=== PATIENT | male | born 1960 | race Caucasian/White ===

== ENCOUNTER 2024-06-07 12:10 | Emergency (ER) | payer MEDICARE, MEDICAID, SELFPAY ==
[2024-06-07 12:13] VITALS: BP 131/75; PULSE 79; RESP 18; TEMP 38.5; O2SAT 95
[2024-06-07 12:47] LABS: EDCOVIDSCREEN Negative (Negative); EDINFLUASCREEN Negative (Negative); EDINFLUBSCREEN Negative (Negative)
--- OUTSIDE RECORDS SUMMARY | 2024-06-07 12:57 | XMS_ITS | Encounter Summary ---
Author Organization [facility] Address [address] [place] [address] Phone Care Team Providers Care Chemical Plant Operator Supervisor Name Role Phone Anaya Barker Primary Care Provider Espinoza Noyola MD Unavailable Provider, None Primary Care Provider Unavailabl e Reason for Visit * Reason Comments Medication Refill Encounter Details Date Type Department Care Team (Late st Contact Info) Description 11/25/2020 Refill [facility] - Pulmonology & Sleep Medicine [facility] [address] [place] [address] Espinoza Noyola MD [address] [place] [address] Medication Refill Social History Tobacco Use Types Packs/Day Years Used Date Smoking Tobacco: Every Day Cigarettes 1 47.6 Started: 11/07/1976 Smokeless Tobacco: Never Alcohol Use Standard Drinks/Week Comments Yes 4 (1 standard drink = 0.6 oz pur e alcohol) per week Sexually Active Control Partners Comments Yes Female Sex and Gender Information Value Date Recorded Sex Assigned at Not on file Legal Sex Male 7:49 PM CDT Gender Identity Not on file Sexual Orientation Not on file documented as of this encounter Plan of Treatment Not on file documented as of this encounter Visit Diagnoses Not on filedocumented in this encounter Care Teams Chemical Plant Operator Supervisor Relationship Specialty Start Date End Date Anaya Barker PA [address] [place] [address] PCP - General Adult Medicine 06/24/16 09/26/21 Provider, None [place] PCP - General 09/27/21 Espinoza Noyola MD [address] [place] [address] Consulting Physician Pulmonary Disease 06/24/16 documented as of this encounter
--- OUTSIDE RECORDS SUMMARY | 2024-06-07 12:57 | XMS_ITS | Clinical Summary ---
Author Organization [facility] Address [address] [place] [address]. [place] [address] [place] [address] Care Team Providers Care Quahogger Name Role Phone Unavailable Primary Care Provider Unavailabl e Allergies No known active allergies Medications VENTOLIN HFA 108 (90 Base) MCG/ACT inhaler Inhale 2 puffs into the lungs every 6 (six) hours as needed. 2 Active fluticasone propionate (FLONASE) 50 MCG/ACT nasal spray SHAKE LIQUID AND USE 1 SPRAY IN EACH NOSTRIL TWICE DAILY NEEDED FOR CONGESTION 2 Active DALIRESP 500 MCG Tab Take 500 mcg by mouth daily. 2 Active SPIRIVA HANDIHALER [address] 1 capsule into inhaler and inhale daily. 2 Active Budeson-Glycopyrr ol-Formoterol (BREZTRI AEROSPHERE) 160-9-4.8 MCG/ACT AerosolIndication s:Centrilobular emphysema (CMS/HCC HHS/HCC) Inhale 2 puffs into the lungs 2 (two) times a day. 10.7 g 5 2 Active losartan-hydroCHL OROthiazide (HYZAAR) 50-12.5 MG tabletIndications :Primary hypertension Take 0.5 tablets by mouth daily. 90 tablet 1 2 Active meloxicam (MOBIC) 15 MG tabletIndications :Chronic midline low back pain with left-sided sciatica Take 1 tablet (15 mg total) by mouth daily as needed. 30 tablet 3 2 Active sertraline (ZOLOFT) 50 MG tabletIndications :DUNCAN (generalized anxiety disorder) TAKE 1 TABLET(50 MG) BY MOUTH DAILY 30 tablet 3 Active omeprazole (PRILOSEC) 40 MG capsuleIndication s:Gastroesophagea l reflux disease without esophagitis TAKE 1 CAPSULE(40 MG) BY MOUTH DAILY 90 capsule 1 3 Active Active Problems Problem Noted Date Diagnosed Date Umbilical hernia without obstruction and without gangrene 11/08/2019 Benign essential HTN 03/28/2019 Centrilobular emphysema (CMS/HCC HHS/HCC) 2016 Gastroesophageal reflux disease without esophagi tis 08/13/2016 Tobacco use disorder 08/13/2016 Immunizations Name Administration Dates Next Due Fluzone 6 Months+ Quad (0.5 mL Prefilled Syringe) 02/06/2022 Influenza Adult (Generic) 03/30/2020,11/2018,03/22/2018,2016,03/03/2016,02/12/2015 EDIL ([employer]) COVID-19 AD26 VACCINE 0.5 ML IM SUSP 09/29/2020 Pneumococcal (Pneumovax 23) 10/17/2009 Pneumococcal (Prevnar 13) 03/05/2022 Td, Adsorbed, Preservative F ree, Adult Use, Lf Unspecified 02/12/2015 Social History Tobacco Use Types Packs/Day Years Used Date Smoking Tobacco: Every Day Cigarettes 0.5 45 Smokeless Tobacco: Never Tobacco Cessation:Ready to Q uit: No; Counseling Given: Yes Comments:counseled by Dr Lundberg Alcohol Use Standard Drinks/Week Comments Not Currently 0 (1 standard drink = 0.6 oz pur e alcohol) PHQ-2 Answer Date Recorded PHQ-2 Score - If the patient scores above 3, please move on to questions 3-9 2 03/05/2022 Sex and Gender Information Value Date Recorded Sex Assigned at Not on file Legal Sex Male 8:34 AM CDT Gender Identity Not on file Sexual Orientation Not on file Last Filed Vital Signs Vital Sign Reading Time Taken Comments Blood Pressure 133/81 03/05/2022 10:12 AM CDT Pulse 82 03/05/2022 9:47 AM CDT Temperature 36.9 ??C (98.4 ??F) 03/05/2022 9:47 AM CD T Respiratory Rate 18 03/05/2022 9:47 AM CDT Oxygen Saturation 94% 03/05/2022 9:47 AM CDT Inhaled Oxygen Concentration - - Weight 93.7 kg (206 lb 9.6 oz) 03/05/2022 9:47 A M CDT Height 175.3 cm (5' 9 ) 03/05/2022 9:47 AM CDT Body Mass Index 30.51 03/05/2022 9:47 AM CDT Plan of Treatment Health Maintenance Due Date Last Done Comments Colorectal Cancer Screening Colonoscopy (10 Years) 1959 PHQ-2 (Physician [employer] [place] [place]) 1971 Zoster Vaccines (1 of 2) 2009 DTaP, Tdap and Td Vaccines (1 - Tdap) 02/13/2015 02/12/2015 RSV Immunization or 60+ Years (1 - Risk 60-74 years 1-dose series) 2019 COVID-19 Vaccine (2 - season) 2024 09/29/2020 Pneumococcal Vaccine: 65+ Years (3 of 3 - PPSV23 or PCV20) 02/02/2024 03/05/2022, 10/17/2009 Pneumococcal Vaccine: Pediatrics (0 to 5 Years) and At-Risk Patients (6 to 64 Years) (3 of 3 - PPSV23 or PCV20) 02/02/2024 03/05/2022, 10/17/2009 Influenza Adult (#1) 2024 02/06/2022, 03/30/2020, 02/14/2019, Additional history exists PHQ-2 (Physician [employer] [place] [place]) 05/11/2024 Hepatitis C Completed 02/06/2022 Meningococcal B Vaccine Aged Out No l onger eligible based on patient's age to complete this topic Meningococcal Vaccine Aged Out No marly teresita eligible based on patient's age to complete this topic RSV Immunizations Under 20 Months Aged Out No longer eligible based on patient's age to complete this topic Procedures Procedure Name Priority Date/Time Associated Diagnosis Comments HEPATITIS C ANTIBODY Routine 02/06/2022 9:54 AM CDT Annual physical exam Encounter for medical examination to establish care General medical exam Encounter for hepatitis C screening test for low risk patient from Last 3 Months or Most Recently Relevant to Health Maintenance Results * HEPATITIS C ANTIBODY (02/06/2022 9:54 AM CDT) HEPATITIS C AB NON-REACTI VE NON-REACT AUDRA 02/06/2022 6:30 PM CDT [facility] Comment: ANTIBODIES TO HCV NOT DETECTED. DOES NOT EXCLUDE THE POSSIBILITY OF EXPOSURE TO HCV. 02/06/2022 9:54 AM CDT Sarah Lundberg MD LABORATORY Final Result [facility] [address] [place] [address], [id number] from Last 3 Months or Most Recently Relevant to Health Maintenance Insurance [employer]
--- OUTSIDE RECORDS SUMMARY | 2024-06-07 12:57 | XMS_ITS | Encounter Summary ---
Author Organization [facility] Address [address] [place] [address] Phone Care Team Providers Care Solid Die Cutter Name Role Phone Espinoza Noyola MD Unavailable Provider, None Primary Care Provider Unavailabl e Reason for Visit * Reason Onset Date Comments Patient Outreach 04/02/2022 LM on Encounter Details Date Type Department Care Team (Late st Contact Info) Description 04/02/2022 Patient Outreach [facility] - Pulmonology & Sleep Medicine [facility] [address] [place] [address] Espinoza Noyola MD [address] [place] [address] Patient Outreach (LM on ) Social History Tobacco Use Types Packs/Day Years [...] on filedocumented in this encounter Care Teams Solid Die Cutter Relationship Specialty Start Date End Date Provider, None [place] PCP - General 09/27/21 Espinoza Noyola MD Consulting Physician Pulmonary Disease 06/24/16 documented as of this encounter
--- OUTSIDE RECORDS SUMMARY | 2024-06-07 12:57 | XMS_ITS | Encounter Summary ---
Author Organization [facility] Address [address] [place] [address] Phone Care Team Providers Care Epic Director Name Role Phone Anaya Barker Primary Care Provider [phone] Espinoza Noyola MD Unavailable Provider, None Primary Care Provider Unavailabl e Reason for Visit * Reason Comments Medication Refill Encounter Details Date Type Department Care Team (Late st Contact Info) Description 05/27/2020 Refill [facility] [address] [place] [address] Espinoza Noyola MD [address] [place] [address] Medication Refill Social History Tobacco [...] on filedocumented in this encounter Care Teams Epic Director Relationship Specialty Start Date End Date Anaya Barker PA [address] [place] [address] PCP - General Adult Medicine 06/24/16 09/26/21 Provider, None [place] PCP - General 09/27/21 Espinoza Noyola MD [address] [place] [address] Consulting Physician Pulmonary Disease 06/24/16 documented as of this encounter
--- OUTSIDE RECORDS SUMMARY | 2024-06-07 12:57 | XMS_ITS | Encounter Summary ---
Author Organization [facility] Address [address] [place] [address] Phone Care Team Providers Care Atm Manager Name Role Phone Espinoza Noyola MD Unavailable Provider, None Primary Care Provider Unavailabl e Reason for Visit * Reason Comments Medication Refill Encounter Details Date Type Department Care Team (Late st Contact Info) Description 12/01/2021 Refill [facility] - Pulmonology & [facility] Medicine [facility] [address] [place] [address] Espinoza Noyola MD [address] [place] [address] Medication Refill Social History Tobacco [...] on file documented as of this encounter Miscellaneous Notes * Telephone Encounter - Mitzi Stout RN - 12/02/2021 8:02 AM CDT Patient needs an appointment documented in this encounter Plan of Treatment Not on file documented as of this encounter Visit Diagnoses Not on filedocumented in this encounter Care Teams Atm Manager Relationship Specialty Start Date End Date Provider, None [place] PCP - General 09/27/21 Espinoza Noyola MD Consulting Physician Pulmonary Disease 06/24/16 documented as of this encounter
--- OUTSIDE RECORDS SUMMARY | 2024-06-07 12:57 | XMS_ITS | Encounter Summary ---
Author Organization [facility] Address [address] [place] [address] Phone Care Team Providers Care Dance Master Name Role Phone Anaya Barker Primary Care Provider [phone] Espinoza Noyola MD Unavailable Provider, None Primary Care Provider Unavailabl e Reason for Visit * Reason Comments Medication Refill Encounter Details Date Type Department Care Team (Late st Contact Info) Description 02/05/2020 Refill [facility] [address] [facility] [place] [address] Espinoza Noyola MD [address] [place] [address] Medication Refill Social History Tobacco [...] on filedocumented in this encounter Care Teams Dance Master Relationship Specialty Start Date End Date Anaya Barker PA [address] [place] [address] PCP - General Adult Medicine 06/24/16 09/26/21 Provider, [facility] PCP - General 09/27/21 Espinoza Noyola MD [address] [place] [address] Consulting Physician Pulmonary Disease 06/24/16 documented as of this encounter
--- OUTSIDE RECORDS SUMMARY | 2024-06-07 12:57 | XMS_ITS | Clinical Summary ---
Author Organization [facility] Address [address] [facility] [place] [address] Phone Care Team Providers Care Street Worker Name Role Phone Provider, None Primary Care Provider Unavailabl e Allergies Active Allergy Reactions Criticality Noted Date Comments Gabapentin Rash,Other (see Comments) 06/28/2019 Dizziness Medications VENTOLIN HFA 108 (90 Base) MCG/ACT Aerosol Solution 5 7 Active albuterol (PROVENTIL, VENTOLIN) (2.5 MG/3ML) 0.083% Nebulizer Soln Reported on 08/13/2016 3 6 Active NICOTROL NS 10 MG/ML Solution Reported on 08/13/2016 0 7 Active omeprazole (PRILOSEC) 20 MG CAPSULE DELAYED RELEASE 3 7 Active EQL SALINE NASAL SPRAY 0.65 % Solution Reported on 08/13/2016 0 7 Active fluticasone (FLONASE) 50 MCG/ACT Suspension Reported on 08/13/2016 1 7 Active budesonide-form oterol fumarate (SYMBICORT) 160-4.5 MCG/ACT Aerosol take 2 Puffs by inhalation 2 times daily. Active hydrOXYzine (ATARAX) 10 MG Tablet hydroxyzine HCl 10 mg tablet take 1 tab PO TID PRN Active losartan (COZAAR) 25 MG Tablet losartan 25 mg tablet Take 1 tablet every day by oral route. Active baclofen (LIORESAL) 10 MG Tablet 0 Active diclofenac (VOLTAREN) 50 MG Tablet Delayed Response 0 Active tamsulosin (FLOMAX) 0.4 MG Capsule TK 1 C PO QD 0 Active Spiriva HandiHaler 18 MCG Capsule INHALE THE CONTENTS OF 1 CAPSULE VIA INHALATION DEVICE EVERY DAY 30 Cap 5 1 Active Daliresp 500 MCG Tablet TAKE 1 TABLET BY MOUTH DAILY 90 Tablet 3 1 Active HYDROcodone-kinsey taminophen (NORCO) 5-325 MG TabletIndicatio ns:Low back pain with left-sided sciatica Take 1 Tablet by mouth every 8 hours as needed for Moderate or more severe pain. 12 Tablet 2 Active Active Problems Problem Noted Date Diagnosed Date Umbilical hernia without obstruction and without gangrene 11/08/2019 Benign essential HTN 03/28/2019 Centrilobular emphysema 08/13/2016 SOB (shortness of breath) 08/13/2016 Cough 08/13/2016 Gastroesophageal reflux disease without esophagi tis 08/13/2016 Tobacco use disorder 08/13/2016 Non morbid obesity due to excess calories 2016 Family History Medical History Relation Name Comments Diabetes Father Diabetes Maternal Grandmother Cancer Mother Dementia Mother Diabetes Mother Hypertension Mother Stroke Mother No Known Problems Sister 1 No Known Problems Sister 2 No Known Problems Son 1 No Known Problems Son 2 No Known Problems Son 3 No Known Problems Son 4 Relation Name Status Comments Father Alive Maternal Grandfather Maternal Grandmother Mother Paternal Grandfather Paternal Grandmother Sister 1 Alive Sister 2 Alive Son 1 Alive Son 2 Alive Son 3 Alive Son 4 Alive Social History Tobacco Use Types Packs/Day Years Used Date Smoking Tobacco: Every Day Cigarettes 1 47.6 Started: 11/07/1976 Smokeless Tobacco: Never Tobacco Cessation:Ready to Q uit: Yes; Counseling Given: No Alcohol Use Standard Drinks/Week Comments Yes 4 [...] Sign Reading Time Taken Comments Blood Pressure 153/103 09/27/2021 7:11 PM CDT Pulse 93 09/27/2021 7:08 PM CDT Temperature 36.8 ??C (98.2 ??F) 09/27/2021 7:08 PM CD T Respiratory Rate 20 09/27/2021 7:08 PM CDT Oxygen Saturation 97% 09/27/2021 7:08 PM CDT Inhaled Oxygen Concentration - - Weight 94.3 kg (208 lb) 09/27/2021 7:08 PM CDT Height 175.3 cm (5' 9 ) 09/27/2021 7:08 PM CDT Body Mass Index 30.72 09/27/2021 7:08 PM CDT Plan of Treatment Health Maintenance Due Date Last Done Comments Hepatitis C Virus (HCV) Screening 1960 TdaP Immunization 1960 Colonoscopy 02/02/2004 Colorectal Cancer Screening 02/02/2004 Cologuard 2009 Immunochemical Fecal Occult Blood 2009 Zoster Immunization (1 of 2) 2009 Pneumococcal Immunization (50+ years) (2 of 2 - PCV) 10/17/2010 10/17/2009 PSA Discussion 2014 Respiratory Syncytial Virus (RSV) Immunization (Adult) (1 - Risk 60-74 years 1-dose series) 2019 Influenza Immunization (#1) 01/10/202403/12, 02/14/2019, 03/22/2018, Additional history exists SARS-COV-2 Immunization (2 - season) 2024 09/29/2020 Pneumococcal Immunization Combined Discontinued 10/17/2009 DTaP/Tdap/Td Immunization Discontinued 02/12/2015 Lung Cancer Screening Discontinued 09/17/2016 Hepatitis B Immunization Aged Out No longer eligible based on patient's age to complete this topic Meningococcal Immunization (ACWY) Aged Out No longer eligible based on patient's age to complete this topic Rotavirus Immunization Aged Out No lo nger eligible based on patient's age to complete this topic Procedures Procedure Name Priority Date/Time Associated Diagnosis Comments CT CHEST W CONTRAST Routine 09/17/2016 1:13 PM CDT Hyperinflation of lungs from Last 3 Months or Most Recently Relevant to Health Maintenance Results * CT CHEST W CONTRAST (09/17/2016 1:13 PM CDT) Anatomical Region Laterality Modality Chest N/A Computed Tomogra phy 09/19/2016 4:42 PM CDT Impressions 09/19/2016 4:45 PM CDT IMPRESSION: ?? 1. ??Right third rib irregularity shows no change since 2008. ??No concerning osseous abnormality is seen. 2. ??Small hiatal hernia and other chronic finding so as above. Automated exposure control was used as a dose optimization technique for this examination. Narrative 09/19/2016 4:45 PM CDT EXAMINATION: ??CT chest with contrast HISTORY: ??Follow-up resection of right third rib lesion 10/07/2008. COMPARISON: ??10/11/2008 TECHNIQUE: ??100 mL of Isovue 370 were administered via the right antecubital IV and CT sections were obtained through the thorax. FINDINGS: ??Irregularity at the lateral right 3rd rib shows no change since 2008. ??No new lesion is seen. ??Other osseous structures are unremarkable. Heart size is normal. ??No enlarged lymph node. ??Thoracic inlet and thyroid gland appear normal. ??Small hiatal hernia and mild thickening of the distal esophagus. ??Mild to moderate emphysema. ?? Mild right base atelectasis. ??Trachea and major airways are patent. Review of the upper abdomen reveals no concerning abnormality. THIS IS AN ELECTRONICALLY VERIFIED REPORT 09/19/2016 4:42 PM: ?? Jose Juan Shaw M.D. ? Jose Juan Shaw M.D. Radiologist AR:ashley RYN Procedure Note Jose Juan Shaw MD - 09/19/2016 EXAMINATION: CT chest with contrast HISTORY: Follow-up resection of right third rib lesion 10/07/2008. COMPARISON: 10/11/2008 TECHNIQUE: 100 mL of Isovue 370 were administered via the right antecubital IV and CT sections were obtained through the thorax. FINDINGS: Irregularity at the lateral right 3rd rib shows no change since 2008. No new lesion is seen. Other osseous structures are unremarkable. Heart size is normal. No enlarged lymph node. Thoracic inlet and thyroid gland appear normal. Small hiatal hernia and mild thickening of the distal esophagus. Mild to moderate emphysema. Mild right base atelectasis. Trachea and major airways are patent. Review of the upper abdomen reveals no concerning abnormality. THIS IS AN ELECTRONICALLY VERIFIED REPORT 09/19/2016 4:42 PM: Jose Juan Shaw M.D. Jose Juan Shaw M.D. Radiologist AR:ashley RYN IMPRESSION: 1. Right third rib irregularity shows no change since 2008. No concerning osseous abnormality is seen. 2. Small hiatal hernia and other chronic finding so as above. Automated exposure control was used as a dose optimization technique for this examination. Espinoza Noyola MD IMG CT ORDERABLES Final Result from Last 3 Months or Most Recently Relevant to Health Maintenance [place] [address] MEDICAID [place] MEDICARE C [employer] Care Teams Street Worker Relationship Specialty Start Date End Date Provider, None [place] PCP - General 09/27/21
--- NOTE | 2024-06-07 13:14 | ED.GENADULT ---
HPI - General Adult General Chief complaint: Allergic Reaction Stated complaint: Allergic Reaction /Swelling Face and Head Source: patient and family Mode of arrival: ambulatory Limitations: no limitations History of Present Illness HPI narrative: Pt presents for evaluation of pain, redness and swelling to his scalp, forehead, right side of the face and right external ear. Symptom onset 2 days ago. He denies any fever, chills, nausea, vomiting. No new lotions, soaps, detergents, topical products. He was experiencing muscle spasms in his neck so repeatedly was slapping the posterior aspect of his neck to see if that would help alleviate his symptoms. He has not had similar symptoms in the past. He has a chronic cough and LARSEN which are not worse at the present time when compared to his baseline. He smokes 1-2 ppd. His son states he has been more lethargic, laying around during the day. Of note, he has been off his prescription medications for several years. He is not able to tell me what medications he was prescribed but mentioned that he was on at least a medication for his blood pressure and another for his cholesterol. He states several years ago he had a DVT but was only on a blood thinner for about 1 week. Related Data Home Medications ?Medication ?Instructions ?Recorded ?Confirmed ?Last Taken ?Type inhaler 06/07/24 Unknown History Allergies Allergy/AdvReac Type Severity Reaction Status Date / Time No Known Allergies Allergy Verified 06/07/24 13:04 Review of Systems Review of Systems: CONSTITUTIONAL: Denies fever, chills, or sweats. EYES: Denies visual changes, redness, or discharge. ENT: Denies rhinorrhea, congestion, sore throat, or otalgia. CARDIOVASCULAR: Denies chest pain, palpitations, or edema. RESPIRATORY: Reports chronic cough and shortness of breath. GASTROINTESTINAL: Denies abdominal pain, nausea, vomiting, or diarrhea. GENITOURINARY: Denies dysuria or hematuria. SKIN: Reports redness and itching to the scalp forehead, right side of his face and right ear. MUSCULOSKELETAL: Reports muscle spasms in the neck and chest. NEUROLOGIC: Denies headache, numbness, dizziness, or weakness. PSYCHIATRIC: Denies anxiety or depression. [facility] Past Medical History Medical History DVT (deep venous thrombosis) Hyperlipidemia Hypertension Surgical History Surgical History (Reviewed 06/07/24 @ 13:20 by Lawrence Ge, [facility] [place]) No pertinent past surgical history Family History Family History (Reviewed 06/07/24 @ 13:20 by Lawrence Ge, [facility] [place]) Mother Family history non-contributory Social History Social History Smoking packs per day: 2 Smoking cigarettes per day: 40.0 Smoking status: Current every day smoker Tobacco type: cigarettes Alcohol intake: former Living arrangements: alone Sexual Orientation (if Verbalized by the Patient): Straight or Heterosexual Spiritual care concerns: No Exam Narrative: GENERAL: Well-appearing, well-nourished, and in no acute distress. HEAD: Normocephalic, atraumatic. EYES: PERRLA and EOMI. ENT: Nares clear, no rhinorrhea or epistaxis. Mucous membranes moist. Oropharynx without tonsillar hypertrophy exudate or other lesions. Bilateral TMs pearly jarrett nonbulging NECK: Supple. No adenopathy or masses. No carotid bruits or JVD CHEST: Cough present on exam. Clear to auscultation. No respiratory distress. No wheezes rales or rhonchi HEART: Regular rate and rhythm. No murmur heard. Normal peripheral pulses. ABDOMEN: Soft, nontender, nondistended, normal active bowel sounds. EXTREMITIES: Normal range of motion. No edema. SKIN: There is erythema to the scalp globally, the forehead, right side of the face, and right external ear. NEURO: No focal deficits. Alert and oriented x3. PSYCH: Normal mood and affect. Course Course Emergency Course: This is a 64-year-old male who presented for evaluation of redness to the face and scalp. Etiology unclear. This could be a cellulitis verses allergic reaction versus symptom of vascular abnormality. I am concerned that he was previously on a blood thinner for only a week with a DVT. He has also discontinued all of his medications. I think he will have poor follow-up. I recommended he go to the hospital for further evaluation. He is agreeable. [facility] is his facility of choice. I contacted [facility] Emergency Department and spoke with MARITZA Harris, who indicates that Dr. Sanders will accept pt for tx there. Pt transferred via private vehicle. Level of Care: Express Care Visit Vital Signs Vital signs: Vital Signs Temperature 38.5 C H 06/07/24 12:13 Pulse Rate 79 06/07/24 12:13 Respiratory Rate 18 06/07/24 12:13 Blood Pressure 131/75 06/07/24 12:13 Pulse Oximetry 95 06/07/24 12:13 Oxygen Delivery Room Air 06/07/24 12:13 Temperature 38.5 C H 06/07/24 12:13 Pulse Rate 79 06/07/24 12:13 Respiratory Rate 18 06/07/24 12:13 Blood Pressure 131/75 06/07/24 12:13 Pulse Oximetry 95 06/07/24 12:13 Oxygen Delivery Room Air 06/07/24 12:13 Medical Decision Making Vital Signs Vital Signs: Vital Signs Temperature 38.5 C H 06/07/24 12:13 Pulse Rate 79 06/07/24 12:13 Respiratory Rate 18 06/07/24 12:13 Blood Pressure 131/75 06/07/24 12:13 Pulse Oximetry 95 06/07/24 12:13 Oxygen Delivery Room Air 06/07/24 12:13 Temperature 38.5 C H 06/07/24 12:13 Pulse Rate 79 06/07/24 12:13 Respiratory Rate 18 06/07/24 12:13 Blood Pressure 131/75 06/07/24 12:13 Pulse Oximetry 95 06/07/24 12:13 Oxygen Delivery Room Air 06/07/24 12:13 Lab Data Labs: Lab Results 06/07/24 Range/Units 12:45 POC Influenza A Ag Negative (Negative) POC Influenza B Ag Negative (Negative) POC SARS CoV-2 Ag Negative (Negative) Discharge Plan Discharge Clinical Impression: Allergic reaction Patient Disposition: Acute Care Hospital Condition: Stable Patient Language: Turkish Prescriptions: No Action inhaler Follow-up/Referrals: UNKNOWN,DOCTOR [Primary Care Provider] - Time of Disposition: 13:10
== END 2024-06-07 13:17 | disposition short-term general hospital (02) ==
PROVIDERS: Emergency Provider Nurse Practitioner
DX: T78.40XA Allergy, unspecified, initial encounter (principal); Z20.822 Contact with and (suspected) exposure to COVID-19; F17.210 Nicotine dependence, cigarettes, uncomplicated; E78.5 Hyperlipidemia, unspecified; I10 Essential (primary) hypertension; Z91.148 Patient's other noncompliance with medication regimen for other reason; Z86.718 Personal history of other venous thrombosis and embolism
CPT/HCPCS: 87426; 87804; 99202; G0463

== ENCOUNTER 2024-07-06 11:14 | Outpatient (CLI) | payer MEDICARE, MEDICAID, SELFPAY ==
--- NOTE | ~2024-07-06 | XR_ITS ---
CHEST RADIOGRAPH, PA AND LATERAL CLINICAL HISTORY: R05.9 - Cough, unspecified . COMPARISON: None TECHNIQUE: PA and lateral views of the chest. FINDINGS The cardiomediastinal silhouette is unremarkable. Blunting of the right costophrenic sulcus suggesting a small right-sided pleural effusion. The remainder of the lungs are clear IMPRESSION: Small right-sided pleural effusion without focal infiltration. Reviewed, dictated and finalized at location A. [facility] CLERK
--- OUTSIDE RECORDS SUMMARY | 2024-07-06 13:09 | XMS_ITS | Encounter Summary ---
Author Organization [facility] Address [address] [place] [address] Phone Care Team Providers Care Barrel Tester And Drainer Name Role Phone Anaya Barker Primary Care Provider [phone] Espinoza Noyola MD Unavailable Provider, None Primary Care Provider Unavailabl e Reason for Visit * Reason Comments Medication Refill Encounter Details Date Type Department Care Team (Late st Contact Info) Description 05/27/2020 Refill [facility] #[address] [place] [address] Espinoza Noyola MD [address] [place] [address] Medication Refill Social History Tobacco Use Types Packs/Day Years Used Date Smoking Tobacco: Every Day Cigarettes 1 47.7 Started: 11/07/1976 Smokeless Tobacco: Never Alcohol Use [...] on filedocumented in this encounter Care Teams Barrel Tester And Drainer Relationship Specialty Start Date End Date Anaya Barker PA [address] [place] [address] PCP - General Adult Medicine 06/24/16 09/26/21 Provider, None [place] PCP - General 09/27/21 Espinoza Noyola MD [address] [place] [address] Consulting Physician Pulmonary Disease 06/24/16 documented as of this encounter
--- OUTSIDE RECORDS SUMMARY | 2024-07-06 13:09 | XMS_ITS | Clinical Summary ---
Author Organization [facility] Address [facility] [place] [address] Care Team Providers Care Video Editor Name Role Phone Unavailable Primary Care Provider [...] Prefilled Syringe) 02/06/2022 Influenza Adult (Generic) 03/30/2020,11/2018,03/22/2018,2016,03/03/2016,02/12/2015 [employer] ([employer]) COVID-19 AD26 VACCINE 0.5 ML IM SUSP [...] 82 03/05/2022 9:47 AM CDT Temperature 36.9 C (98.4 F) 03/05/2022 9:47 AM CDT Respiratory Rate 18 03/05/2022 9:47 AM CDT [...] Colorectal Cancer Screening Colonoscopy (10 Years) 1960 Zoster Vaccines (1 of 2) 2009 DTaP, Tdap and Td Vaccines (1 - Tdap) 02/13/2015 02/12/2015 RSV Immunization or 60+ Years (1 - Risk 60-74 years 1-dose series) 2019 COVID-19 Vaccine (2 - 2023- season) 2024 09/29/2020 Pneumococcal Vaccine: 65+ Years (3 of 3 - PPSV23 or PCV20) 02/02/2024 03/05/2022, 10/17/2009 Pneumococcal Vaccine: Pediatrics (0 to 5 Years) and At-Risk Patients (6 to 64 Years) (3 of 3 - PPSV23 or PCV20) 02/02/2024 03/05/2022, 10/17/2009 Influenza Adult (#1) 2024 02/06/2022, 03/30/2020, 02/14/2019, Additional history exists PHQ-2 ([facility]) 05/11/2024 Hepatitis C Completed 02/06/2022 Meningococcal B [...] VE NON-REACT AUDRA 02/06/2022 6:30 PM CDT [facility] Comment: ANTIBODIES TO HCV NOT DETECTED. DOES NOT EXCLUDE THE POSSIBILITY OF EXPOSURE TO HCV. 02/06/2022 9:54 AM CDT Sarah Lundberg MD LABORATORY Final Result [facility] [address] [place] [address], [id number] from Last 3 Months or Most Recently Relevant to Health Maintenance Insurance [employer]
--- OUTSIDE RECORDS SUMMARY | 2024-07-06 13:09 | XMS_ITS | Encounter Summary ---
Author Organization [facility] Address [address] [place] [address] Phone Care Team Providers Care Framing Consultant Name Role Phone Espinoza Noyola MD Unavailable Provider, None Primary Care Provider Unavailabl e Reason for Visit * Reason Onset Date Comments Patient Outreach 04/02/2022 LM on Encounter Details Date Type Department Care Team (Late st Contact Info) Description 04/02/2022 Patient Outreach [facility] - Pulmonology & Sleep Medicine [facility] [address] [place] [address] Espinoza Noyola MD [address] [place] [address] Patient Outreach (LM on ) [...] on filedocumented in this encounter Care Teams Framing Consultant Relationship Specialty Start Date End Date Provider, None [place] PCP - General 09/27/21 Espinoza Noyola MD Consulting Physician Pulmonary Disease 06/24/16 documented as of this encounter
--- OUTSIDE RECORDS SUMMARY | 2024-07-06 13:09 | XMS_ITS | Encounter Summary ---
Author Organization [facility] Address [address] [place] [address] Phone Care Team Providers Care Commercial Green Building Architect Name Role Phone Anaya Barker Primary Care Provider [phone] Espinoza Noyola MD Unavailable Provider, None Primary Care Provider Unavailabl e Reason for Visit * Reason Comments Medication Refill Encounter Details Date Type Department Care Team (Late st Contact Info) Description 02/05/2020 Refill [facility] [address] [facility] [place] [address] Espinoza Noyola MD [address] [place] [address] Medication Refill Social History Tobacco [...] on filedocumented in this encounter Care Teams Commercial Green Building Architect Relationship Specialty Start Date End Date Anaya Barker PA [address] [place] [address] PCP - General Adult Medicine 06/24/16 09/26/21 Provider, [facility] PCP - General 09/27/21 Espinoza Noyola MD [address] [place] [address] Consulting Physician Pulmonary Disease 06/24/16 documented as of this encounter
--- OUTSIDE RECORDS SUMMARY | 2024-07-06 13:09 | XMS_ITS | Encounter Summary ---
Author Organization [facility] Address [address] [place] [address] Phone Care Team Providers Care Electron Tube Assembler Name Role Phone Espinoza Noyola MD Unavailable Provider, None Primary Care Provider Unavailabl e Reason for Visit * Reason Comments Medication Refill Encounter Details Date Type Department Care Team (Late st Contact Info) Description 12/01/2021 Refill [facility] - Pul[facility] & [facility] Medicine [facility] [address] [place] [address] Espinoza Noyola MD [address] [place] [address] Medication Refill Social History Tobacco [...] on filedocumented in this encounter Care Teams Electron Tube Assembler Relationship Specialty Start Date End Date Provider, None [place] PCP - General 09/27/21 Espinoza Noyola MD Consulting Physician Pulmonary Disease 06/24/16 documented as of this encounter
--- OUTSIDE RECORDS SUMMARY | 2024-07-06 13:09 | XMS_ITS | Clinical Summary ---
Author Organization [facility] Address [address] [facility] [place] [address] Phone Care Team Providers Care Corrugator Machine Operator Name Role Phone Provider, None Primary Care [...] more severe pain. 12 Tablet 2 Active cephALEXin (Keflex) 500 MG Capsule Take 1 Capsule by mouth 4 times daily for 10 days. 40 Capsule 5 06/18/19 25 sulfamethoxazol e-trimethoprim DS (Bactrim DS) 800-160 MG TabletIndicatio ns:Skin and Soft Tissue Infection Take 1 Tablet by mouth 2 times daily for 10 days. Indications: Infection of the Skin and/or Soft Tissue 20 Tablet 5 06/18/19 25 Active Problems Problem Noted Date Diagnosed Date Umbilical hernia without obstruction and without gangrene 11/08/2019 Benign essential HTN 03/28/2019 Centrilobular emphysema 08/13/2016 SOB (shortness of breath) 08/13/2016 Cough 08/13/2016 Gastroesophageal reflux disease without esophagi tis 08/13/2016 Tobacco use disorder 08/13/2016 Non morbid obesity due to excess calories 2016 Encounters Date Type Department Care Team Description 06/08/2024 11:37 AM SITE SUPERVISING TECHNICAL OPERATOR - 06/08/2024 1:53 PM SITE SUPERVISING TECHNICAL OPERATOR Emergency [facility] Emergency [address] [place] [address] Lawrence Kelley, PAC Facial cellulitis Discharge Disposition: Discharged to home or Selfcare 06/08/2024 Travel from Last 3 Months Family History Medical History Relation Name Comments [...] 1 47.7 Started: 11/07/1976 Smokeless Tobacco: Never Tobacco Cessation:Ready [...] Sign Reading Time Taken Comments Blood Pressure 142/81 06/08/2024 11:41 AM SITE SUPERVISING TECHNICAL OPERATOR Pulse 94 06/08/2024 11:41 AM SITE SUPERVISING TECHNICAL OPERATOR Temperature 38 C (100.4 F) 06/08/2024 11:41 AM SITE SUPERVISING TECHNICAL OPERATOR Respiratory Rate 16 06/08/2024 11:41 AM SITE SUPERVISING TECHNICAL OPERATOR Oxygen Saturation 93% 06/08/2024 11:41 AM SITE SUPERVISING TECHNICAL OPERATOR Inhaled Oxygen Concentration - - Weight 94.3 kg (208 lb) 06/08/2024 11:41 AM SITE SUPERVISING TECHNICAL OPERATOR Height 175.3 cm (5' 9 ) 06/08/2024 11:41 AM SITE SUPERVISING TECHNICAL OPERATOR Body Mass Index 30.72 06/08/2024 11:41 AM SITE SUPERVISING TECHNICAL OPERATOR Plan of Treatment Health Maintenance Due Date Last Done Comments TdaP Immunization 1960 Colonoscopy 02/02/2004 Colorectal Cancer Screening 02/02/2004 Cologuard 2009 Immunochemical Fecal Occult Blood 2009 Zoster Immunization (1 of 2) 2009 PSA Discussion 2014 Respiratory Syncytial Virus (RSV) Immunization (Adult) (1 - Risk 60-74 years 1-dose series) 2019 Influenza Immunization (#1) 2024 09/2 01/2022, 03/30/2020, 02/14/2019, Additional history exists SARS-COV-2 Immunization (2 - season) 2024 09/29/2020 Pneumococcal Immunization (50+ years) (3 of 3 - PCV20 or PCV21) 03/05/2027 03/05/2022, 10/17/2009 DTaP/Tdap/Td Immunization Discontinued 02/12/2015 Lung Cancer Screening Discontinued 09/17/2016 Hepatitis C Virus (HCV) Screening Completed 02/06/2022 Pneumococcal Immunization Combined Discontinued 03/05/2022, 10/17/2009 Hepatitis B Immunization Aged Out No longer eligible based on patient's age to complete this topic Meningococcal Immunization (ACWY) Aged Out No longer eligible based on patient's age to complete this topic Rotavirus Immunization Aged Out No lo nger eligible based on patient's age to complete this topic Procedures Procedure Name Priority Date/Time Associated Diagnosis Comments CBC WITH AUTO DIFFERENTIAL STAT 06/08/2024 12:54 PM SITE SUPERVISING TECHNICAL OPERATOR CMP (COMPREHENSIVE METABOLIC PANEL) STAT 06/08/2024 12:54 PM SITE SUPERVISING TECHNICAL OPERATOR COMPLETE BLOOD COUNT (CBC) WITH DIFF STAT 06/08/2024 12:54 PM SITE SUPERVISING TECHNICAL OPERATOR CT CHEST W CONTRAST Routine 09/17/2016 1 :13 PM CDT Hyperinflation of lungs from Last 3 Months or Most Recently Relevant to Health Maintenance Results * (ABNORMAL) CBC with Auto Differential (06/08/2024 12:54 PM SITE SUPERVISING TECHNICAL OPERATOR) WBC 10.88 4.00 - 12.00 10(3)/mcL 06/08/2024 1:16 PM SITE SUPERVISING TECHNICAL OPERATOR [facility] RBC 5.32 4.40 - 5.80 10(6)/mcL 06/08/2024 1:16 PM SITE SUPERVISING TECHNICAL OPERATOR [facility] HEMOGLOBIN (HGB) 15.1 13.0 - 16.5 g/dL 06/08/2024 1:16 PM SITE SUPERVISING TECHNICAL OPERATOR [facility] HEMATOCRIT (HCT) 44.1 38.0 - 50.0 % 06/08/2024 1:16 PM SITE SUPERVISING TECHNICAL OPERATOR [facility] MCV 82.9 82.0 - 96.0 fL 06/08/2024 1:16 PM [facility] MCH 28.4 26.0 - 32.0 pg 06/08/2024 1:16 PM [facility] MCHC 34.2 31.0 - 36.0 g/dL 06/08/2024 1:16 PM [facility] PLATELET COUNT 193 140 - 440 10(3)/[facility] 06/08/2024 1:16 PM [facility] RDW 12.6 11.8 - 15.5 % 06/08/2024 1:16 PM [facility] MPV 10.8 8.0 - 12.6 fL 06/08/2024 1:16 PM [facility] NEUTROPHILS 80.9(H) 40.0 - 68.0 % 06/08/2024 1:16 PM [facility] LYMPHOCYTES 6.7(L) 19.0 - 49.0 % 06/08/2024 1:16 PM [facility] MONOCYTES 11.8 3.0 - 13.0 % 06/08/2024 1:16 PM [facility] EOSINOPHILS 0.4 0.0 - 8.0 % 06/08/2024 1:16 PM [facility] BASOPHILS 0.2 0.0 - 1.0 % 06/08/2024 1:16 PM [facility] ABSOLUTE NEUTROPHILS 8.81(H) 1.40 - 5.30 10(3)/[facility] 06/08/2024 1:16 PM [facility] ABSOLUTE LYMPHOCYTES 0.73(L) 0.90 - 3.30 10(3)/[facility] 06/08/2024 1:16 PM [facility] ABSOLUTE MONOCYTES 1.28(H) 0.10 - 0.90 10(3)/[facility] 06/08/2024 1:16 PM [facility] ABSOLUTE EOSINOPHIL 0.04 0.00 - 0.50 10(3)/[facility] 06/08/2024 1:16 PM [facility] ABSOLUTE BASOPHILS 0.02 0.00 - 0.10 10(3)/mcL 06/08/2024 1:16 PM [facility] NRBC PER 100 WBC 0 06/08/19 1:16 PM [facility] Blood Venipuncture / Unknown 06/08/2024 12:54 PM SITE SUPERVISING TECHNICAL OPERATOR 06/08/2024 1:12 PM SITE SUPERVISING TECHNICAL OPERATOR us Lawrence Kelley PAC HEMATOLOGY ORDERABLE S Final Result [facility] #[address] [place] [address] * (ABNORMAL) CMP (06/08/2024 12:54 PM SITE SUPERVISING TECHNICAL OPERATOR) SODIUM 136 136 - 145 mmol/L 06/08/2024 1:31 PM [facility] POTASSIUM 3.8 3.5 - 5.1 mmol/L 06/08/2024 1:31 PM [facility] CHLORIDE 103 98 - 107 mmol/L 06/08/2024 1:31 PM [facility] CO2, VENOUS 25 22 - 30 mmol/L 06/08/2024 1:31 PM [facility] ANION GAP 11.8 <18.0 mmol/L 06/08/2024 1:31 PM [facility] GLUCOSE 163(H) 70 - 99 mg/dL 06/08/2024 1:31 PM [facility] BUN 28(H) 8 - 26 mg/dL 06/08/2024 1:31 PM [facility] CREATININE, BLOOD 0.96 0.70 - 1.30 mg/dL 06/08/2024 1:31 PM [facility] BUN/CREATININE RATIO 29(H) 12 - 20 ratio 06/08/2024 1:31 PM [facility] TOTAL PROTEIN 7.4 6.0 - 8.0 g/dL 06/08/2024 1:31 PM [facility] ALBUMIN 3.3(L) 3.5 - 5.0 g/dL 06/08/2024 1:31 PM SITE SUPERVISING TECHNICAL OPERATOR [facility] A/G RATIO 0.8(L) 1.0 - 2.2 06/08/2024 1:31 PM SITE SUPERVISING TECHNICAL OPERATOR [facility] CALCIUM 9.1 8.7 - 10.5 mg/dL 06/08/2024 1:31 PM SITE SUPERVISING TECHNICAL OPERATOR [facility] T BILI 0.5 0.2 - 1.2 mg/dL 06/08/2024 1:31 PM SITE SUPERVISING TECHNICAL OPERATOR [facility] SGOT (AST) 37 6 - 42 U/L 06/08/2024 1:31 PM SITE SUPERVISING TECHNICAL OPERATOR [facility] SGPT (ALT) 42 6 - 55 U/L 06/08/2024 1:31 PM SITE SUPERVISING TECHNICAL OPERATOR [facility] ALKALINE PHOSPHATASE 90 40 - 150 U/L 06/08/2024 1:31 PM SITE SUPERVISING TECHNICAL OPERATOR [facility] GFR, ESTIMATED >60 >=60 06/08/2024 1:31 PM SITE SUPERVISING TECHNICAL OPERATOR [facility] Comment: Creatinine Clearance is the preferred criteria for selecting drug dose adjustments in renally impaired patients. The GFR is provided as additional pertinent clinical information. GFR is reported in mL/min/1.73 sq m. Calculation based on the Chronic Kidney Disease Epidemiology Collaboration (CKD- EPI) equation refit without adjustment for race. GFR, EST. >60 >=60 025 1:31 PM SITE SUPERVISING TECHNICAL OPERATOR [facility] GFR, EST. NONAFRICAN >60 >=60 06/08/2024 1:31 PM SITE SUPERVISING TECHNICAL OPERATOR [facility] Blood Venipuncture / Unknown 06/08/2024 12:54 PM SITE SUPERVISING TECHNICAL OPERATOR 06/08/2024 1:12 PM SITE SUPERVISING TECHNICAL OPERATOR us Lawrence Kelley PAC CHEMISTRY ORDERABLES Final Result [facility] [address] [place] [address] * CT CHEST W CONTRAST (09/17/2016 1:13 PM CDT) Anatomical Region Laterality Modality Chest N/A Computed Tomogra phy 09/19/2016 4:42 PM CDT Impressions 09/19/2016 4:45 PM CDT IMPRESSION: 1. Right third rib irregularity shows no change since 2008. No concerning osseous abnormality is seen. 2. Small hiatal hernia and other chronic finding so as above. Automated exposure control was used as a dose optimization technique for this examination. Narrative 09/19/2016 4:45 PM CDT EXAMINATION: CT chest with contrast HISTORY: Follow-up [...] Most Recently Relevant to Health Maintenance Insurance MEDICAID [place] MEDICARE C [employer] Care Teams Corrugator Machine Operator Relationship Specialty Start Date End Date Provider, None [place] PCP - General 09/27/21
--- OUTSIDE RECORDS SUMMARY | 2024-07-06 13:09 | XMS_ITS | Encounter Summary ---
Author Organization [facility] Address [address] [place] [address] Phone Care Team Providers Care Staff Nurse Icu Resource Team Name Role Phone Anaya Barker Primary Care Provider [phone] Espinoza Noyola MD Unavailable Provider, None Primary Care Provider Unavailabl e Reason for Visit * Reason Comments Medication Refill Encounter Details Date Type Department Care Team (Late st Contact Info) Description 11/25/2020 Refill [facility] - Pulmonology & Sleep Medicine [facility] #[address] [place] [address] Espinoza Noyola MD [address] [place] [address] Medication Refill Social History Tobacco [...] on filedocumented in this encounter Care Teams Staff Nurse Icu Resource Team Relationship Specialty Start Date End Date Anaya Barker PA [address] [place] [address] PCP - General Adult Medicine 06/24/16 09/26/21 Provider, None [place] PCP - General 09/27/21 Espinoza Noyola MD [address] [place] [address] Consulting Physician Pulmonary Disease 06/24/16 documented as of this encounter
[2024-07-06 19:58] LABS: Basophils Percent Auto 0.4 % (0.2-1.2); Eosinophils Absolute Auto 0.1 K/mm3 (0-0.3); Eosinophils Percent Auto 0.8 % (0-4.4); Hematocrit 47.8 % (42.0-52.0); Hemoglobin 15.2 g/dL (14.0-18.0); Immature Granulocyte Absolute 0.03 K/mm3 (0.00-0.031); Immature Granulocyte Percent A 0.4 % (0-0.5); Lymphocytes Percent Auto 10.3 % (18.3-44.2); Mean Corpuscular HGB Conc 31.8 g/dl (32-36); Mean Corpuscular Hemoglobin 28.4 pg (26-34); Mean Corpuscular Volume 89.3 fl (80-100); Mean Platelet Volume 11.1 fl (7.4-10.4); Monocytes Absolute Auto 0.9 K/mm3 (0.1-0.6); Monocytes Percent Auto 12.1 % (2.6-8.5); Neutrophils Absolute Auto 5.9 K/mm3 (1.3-6.7); Platelet Count Result 150 k/mm3 (150-375); Red Blood Count 5.35 M/mm3 (4.6-6.20); Red Cell Distribution Width 13.7 % (11.5-14.5); White Blood Count 7.8 K/mm3 (4.5-10.0)
[2024-07-06 20:33] LABS: Alanine Aminotransferase 31 U/L (6-50); Albumin Level 4.3 g/dL (3.5-5.1); Alkaline Phosphatase 84 U/L (38-126); Anion Gap 8 mmol/L (4-12); Aspartate Amino Transferase 30 U/L (17-59); Blood Urea Nitrogen 20 mg/dL (9-20); Calcium 9.6 mg/dL (8.4-10.2); Carbon Dioxide 29 mmol/L (22-30); Chloride 100 mmol/L (98-107); Cholesterol 170 mg/dL (0-200); Estimated Glomerular Filt Rate > 60; Glucose 117 mg/dL (65-110); HDL Direct 59 mg/dL; Magnesium 2.1 mg/dL (1.6-2.3); Potassium 4.6 mmol/L (3.4-5.0); Sodium 137 mmol/L (137-145); Triglycerides 95 mg/dL (<150)
[2024-07-06 20:44] LABS: LDL Cholesterol Direct 75 mg/dL
[2024-07-06 21:03] LABS: Prostate Specific Antigen 0.5 ng/mL (< OR = 4.0)
== END 2024-07-06 11:15 | disposition home or self-care (01) ==
PROVIDERS: PCP Nurse Practitioner Adult Health; Visit Provider Nurse Practitioner Adult Health
DX: R20.2 Paresthesia of skin (principal); I10 Essential (primary) hypertension; R05.9 Cough, unspecified; Z12.5 Encounter for screening for malignant neoplasm of prostate
CPT/HCPCS: 36415; 71046; 80053; 80061; 82607; 83735; 84153; 84443; 85025; G0103

== ENCOUNTER 2024-07-11 13:38 | Outpatient (CLI) | payer MEDICARE, MEDICAID, SELFPAY ==
[2024-07-11 21:37] LABS: Hemoglobin A1C 6.3 % (<5.7)
== END 2024-07-11 13:39 | disposition home or self-care (01) ==
PROVIDERS: PCP Nurse Practitioner Adult Health; Visit Provider Nurse Practitioner Adult Health
DX: R73.9 Hyperglycemia, unspecified (principal)
CPT/HCPCS: 36415; 83036

== ENCOUNTER 2024-08-01 08:59 | Outpatient (CLI) | payer MEDICARE, MEDICAID, SELFPAY ==
--- NOTE | ~2024-08-01 | CT_ITS ---
EXAMINATION:CT lung screening DATE: 08/01/2024 09:21 INDICATION: Personal history of nicotine dependence. Current smoker with 60 pack year history. TECHNIQUE: Computed tomography (CT) of the chest was performed without intravenous contrast. Automate d exposure control and iterative reconstruction technique were employed. The dose-length product (DLP ) was 110.70 mGy-cm. COMPARISON: None. FINDINGS: There is mild emphysema. There are patchy airspace and groundglass opacities involving the upper lobes, right middle lobe, and right lower lobe. There are scattered tree-in-bud opacities and c entrilobular nodules in the lungs with a lower lung predominance. These findings are consistent with multifocal pneumonia. No pleural effusion. The heart size is normal. There are coronary artery calcif ications. No pericardial effusion. There is a small sliding hiatal hernia. There is volume loss of ri ght third rib. There is mild thoracic spondylosis. IMPRESSION: 1. Lung-RADS category 0: Incomplete. Multifocal pneumonia. Noncontrast low-dose chest CT is recommend ed in 3 months. Reviewed, dictated and finalized at location A. IMPRESSION: 1. Lung-RADS category 0: Incomplete. Multifocal pneumonia. Noncontrast low-dose chest CT is recommended in 3 months.
--- NOTE | ~2024-08-01 | US_ITS ---
EXAMINATION: US venous doppler [facility] DATE: 08/01/2024 11:08 INDICATION: Left lower limb pain. TECHNIQUE: Grayscale ultrasound images without and with compression and Doppler ultrasound images of the left lower extremity veins were obtained. COMPARISON: None. FINDINGS: The visualized portions of left common femoral vein, profunda (deep) femoral vein, femoral vein, popl iteal vein, peroneal veins, posterior tibial veins, and greater saphenous vein outflow are patent. IMPRESSION: 1. No deep venous thrombosis. Reviewed, dictated and finalized at location A.
--- OUTSIDE RECORDS SUMMARY | 2024-08-01 09:45 | XMS_ITS | Encounter Summary ---
Author Organization [facility] Address [address] [place] [address] Phone Care Team Providers Care Postdoctoral Scholar Name Role Phone Espinoza Noyola MD Unavailable Provider, None Primary Care Provider Unavailabl e Reason for Visit * Reason Comments Medication Refill Encounter Details Date Type Department Care Team (Late st Contact Info) Description 12/01/2021 Refill [facility] - Pulmonology & Sleep Medicine [facility] [address] [place] [address] Espinoza Noyola MD [address]2 [place] [address] Medication Refill Social History Tobacco [...] on filedocumented in this encounter Care Teams Postdoctoral Scholar Relationship Specialty Start Date End Date Provider, None [place] PCP - General 09/27/21 Espinoza Noyola MD Consulting Physician Pulmonary Disease 06/24/16 documented as of this encounter
--- OUTSIDE RECORDS SUMMARY | 2024-08-01 09:46 | XMS_ITS | Encounter Summary ---
Author Organization [facility] Address [address] [place] [address] Phone Care Team Providers Care Claims Account Manager Name Role Phone Anaya Barker Primary Care Provider [phone] Espinoza Noyola MD Unavailable Provider, None Primary Care Provider Unavailabl e Reason for Visit * Reason Comments Medication Refill Encounter Details Date Type Department Care Team (Late st Contact Info) Description 05/27/2020 Refill [facility] #[address] [place] [address] Espinoza Noyola MD [address] [place] [address] Medication Refill Social History Tobacco [...] on filedocumented in this encounter Care Teams Claims Account Manager Relationship Specialty Start Date End Date Anaya Barker PA [address] [place] [address] PCP - General Adult Medicine 06/24/16 09/26/21 Provider, None [place] PCP - General 09/27/21 Espinoza Noyola MD [address] [place] [address] Consulting Physician Pulmonary Disease 06/24/16 documented as of this encounter
--- OUTSIDE RECORDS SUMMARY | 2024-08-01 09:46 | XMS_ITS | Clinical Summary ---
Author Organization [facility] Address [facility] [place] [address] Care Team Providers Care Server Cashier Name Role Phone Unavailable Primary Care Provider [...] Prefilled Syringe) 02/06/2022 Influenza Adult (Generic) 03/30/2020,11/2018,03/22/2018,2016,03/03/2016,02/12/2015 [email or web address]) COVID-19 AD26 VACCINE 0.5 ML IM SUSP [...] 02/06/2022, 03/30/2020, 02/14/2019, Additional history exists PHQ-2 ([facility]) 05/11/2024 Hepatitis C Completed 02/06/2022 Meningococcal [...] VE NON-REACT AUDRA 02/06/2022 6:30 PM CDT [facility] Comment: ANTIBODIES TO HCV NOT DETECTED. DOES NOT EXCLUDE THE POSSIBILITY OF EXPOSURE TO HCV. 02/06/2022 9:54 AM CDT Sarah Lundberg MD LABORATORY Final Result [facility] [address] [place] [address], [phone] from Last 3 Months or Most Recently Relevant to Health Maintenance Insurance [employer]
--- OUTSIDE RECORDS SUMMARY | 2024-08-01 09:46 | XMS_ITS | Clinical Summary ---
Author Organization [facility] Address [address], [place] [address] Phone Care Team Providers Care Boat Joiner Helper Name Role Phone Provider, None Primary Care [...] Department Care Team Description 06/08/2024 11:37 AM MANAGER PROGRAM - 06/08/2024 1:53 PM [facility] Emergency [facility] Emergency [address] [place] [address] Lawrence Kelley, AURA Facial cellulitis Discharge Disposition: Discharged to home [...] Comments Blood Pressure 142/81 06/08/2024 11:41 AM MANAGER PROGRAM Pulse 94 06/08/2024 11:41 AM MANAGER PROGRAM Temperature 38 C (100.4 F) 06/08/2024 11:41 AM MANAGER PROGRAM Respiratory Rate 16 06/08/2024 11:41 AM MANAGER PROGRAM Oxygen Saturation 93% 06/08/2024 11:41 AM MANAGER PROGRAM Inhaled Oxygen Concentration - - Weight 94.3 kg (208 lb) 06/08/2024 11:41 AM MANAGER PROGRAM Height 175.3 cm (5' 9 ) 06/08/2024 11:41 AM MANAGER PROGRAM Body Mass Index 30.72 06/08/2024 11:41 AM MANAGER PROGRAM Plan of Treatment Health Maintenance Due Date [...] WITH AUTO DIFFERENTIAL STAT 06/08/2024 12:54 PM MANAGER PROGRAM CMP (COMPREHENSIVE METABOLIC PANEL) STAT 06/08/2024 12:54 PM MANAGER PROGRAM COMPLETE BLOOD COUNT (CBC) WITH DIFF STAT 06/08/2024 12:[address] CHEST W CONTRAST Routine 09/17/2016 1 :13 PM CDT Hyperinflation of lungs from Last 3 Months or Most Recently Relevant to Health Maintenance Results * (ABNORMAL) CBC with Auto Differential (06/08/2024 12:54 PM MANAGER PROGRAM) WBC 10.88 4.00 - 12.00 10(3)/mcL 06/08/2024 1:16 PM MANAGER PROGRAM [facility] RBC 5.32 4.40 - 5.80 10(6)/mcL 06/08/2024 1:16 PM MANAGER PROGRAM [facility] HEMOGLOBIN (HGB) 15.1 13.0 - 16.5 g/dL 06/08/2024 1:16 PM MANAGER PROGRAM [facility] HEMATOCRIT (HCT) 44.1 38.0 - 50.0 % 06/08/2024 1:16 PM MANAGER PROGRAM [facility] MCV 82.9 82.0 - 96.0 fL 06/08/2024 1:16 PM MANAGER PROGRAM [facility] MCH 28.4 26.0 - 32.0 pg 06/08/2024 1:16 PM MANAGER PROGRAM [facility] MCHC 34.2 31.0 - 36.0 g/dL 06/08/2024 1:16 PM MANAGER PROGRAM [facility] PLATELET COUNT 193 140 - 440 10(3)/mcL 06/08/2024 1:16 PM [facility] RDW 12.6 11.8 - 15.5 % 06/08/2024 1:16 PM [facility] MPV 10.8 8.0 - 12.6 fL 06/08/2024 1:16 PM [facility] NEUTROPHILS 80.9(H) 40.0 - 68.0 % 06/08/2024 1:16 PM [facility] LYMPHOCYTES 6.7(L) 19.0 - 49.0 % 06/08/2024 1:16 PM [facility] MONOCYTES 11.8 3.0 - 13.0 % 06/08/2024 1:16 PM [facility] EOSINOPHILS 0.4 0.0 - 8.0 % 06/08/2024 1:16 PM [facility] BASOPHILS 0.2 0.0 - 1.0 % 06/08/2024 1:16 PM [facility] ABSOLUTE NEUTROPHILS 8.81(H) 1.40 - 5.30 10(3)/[facility] 06/08/2024 1:16 PM [facility] ABSOLUTE LYMPHOCYTES 0.73(L) 0.90 - 3.30 10(3)/[facility] 06/08/2024 1:16 PM [facility] ABSOLUTE MONOCYTES 1.28(H) 0.10 - 0.90 10(3)/[facility] 06/08/2024 1:16 PM [facility] ABSOLUTE EOSINOPHIL 0.04 0.00 - 0.50 10(3)/[facility] 06/08/2024 1:16 PM [facility] ABSOLUTE BASOPHILS 0.02 0.00 - 0.10 10(3)/[facility] 06/08/2024 1:16 PM [facility] NRBC PER 100 WBC 0 06/08/19 1:16 PM [facility] Blood Venipuncture / Unknown 06/08/2024 12:54 PM [facility] 06/08/2024 1:12 PM [facility] us Lawrence Medina Allie PAC HEMATOLOGY ORDERABLE S Final Result [facility] [address] [place] [address] * (ABNORMAL) CMP (06/08/2024 12:54 PM MANAGER PROGRAM) SODIUM 136 136 - 145 mmol/L 06/08/2024 1:31 PM MANAGER PROGRAM [facility] POTASSIUM 3.8 3.5 - 5.1 mmol/L 06/08/2024 1:31 PM [facility] CHLORIDE 103 98 - 107 mmol/L 06/08/2024 1:31 PM [facility] CO2, VENOUS 25 22 - 30 mmol/L 06/08/2024 1:31 PM [facility] ANION GAP 11.8 <18.0 mmol/L 06/08/2024 1:31 PM [facility] GLUCOSE 163(H) 70 - 99 mg/dL 06/08/2024 1:31 PM [facility] BUN 28(H) 8 - 26 mg/dL 06/08/2024 1:31 PM [facility] CREATININE, BLOOD 0.96 0.70 - 1.30 mg/dL 06/08/2024 1:31 PM [facility] BUN/CREATININE RATIO 29(H) 12 - 20 ratio 06/08/2024 1:31 PM [facility] TOTAL PROTEIN 7.4 6.0 - 8.0 g/dL 06/08/2024 1:31 PM [facility] ALBUMIN 3.3(L) 3.5 - 5.0 g/dL 06/08/2024 1:31 PM [facility] A/G RATIO 0.8(L) 1.0 - 2.2 06/08/2024 1:31 PM [facility] CALCIUM 9.1 8.7 - 10.5 mg/dL 06/08/2024 1:31 PM [facility] T BILI 0.5 0.2 - 1.2 mg/dL 06/08/2024 1:31 PM MANAGER PROGRAM [facility] SGOT (AST) 37 6 - 42 U/L 06/08/2024 1:31 PM MANAGER PROGRAM [facility] SGPT (ALT) 42 6 - 55 U/L 06/08/2024 1:31 PM MANAGER PROGRAM [facility] ALKALINE PHOSPHATASE 90 40 - 150 U/L 06/08/2024 1:31 PM MANAGER PROGRAM [facility] GFR, ESTIMATED >60 >=60 06/08/2024 1:31 PM MANAGER PROGRAM [facility] Comment: Creatinine Clearance is the preferred criteria for selecting drug dose adjustments in renally impaired patients. The GFR is provided as additional pertinent clinical information. GFR is reported in mL/min/1.73 sq m. Calculation based on the Chronic Kidney Disease Epidemiology Collaboration (CKD- EPI) equation refit without adjustment for race. GFR, EST. >60 >=60 025 1:31 PM MANAGER PROGRAM [facility] GFR, EST. NONAFRICAN >60 >=60 06/08/2024 1:31 PM MANAGER PROGRAM [facility] Blood Venipuncture / Unknown 06/08/2024 12:54 PM MANAGER PROGRAM 06/08/2024 1:12 PM MANAGER PROGRAM Lawrence Kelley PAC CHEMISTRY ORDERABLES Final Result Performing Organization Address City/State/[facility] Co de Phone Number [facility] [address] [place] [address] * CT CHEST W CONTRAST (09/17/2016 1:13 [...] AN ELECTRONICALLY VERIFIED REPORT 09/19/2016 4:42 PM: Mian Carrington M.D. Radiologist AR:ashley RYN Procedure Note Jose [...] AN ELECTRONICALLY VERIFIED REPORT 09/19/2016 4:42 PM: Mian Carrington M.D. Radiologist AR:ashley RYN IMPRESSION: 1. Right [...] MEDICAID [place] MEDICARE C [employer] Care Teams Boat Joiner Helper Relationship Specialty Start Date End Date Provider, None [place] PCP - General 09/27/21
--- OUTSIDE RECORDS SUMMARY | 2024-08-01 09:46 | XMS_ITS | Encounter Summary ---
Author Organization [facility] Address [address] [place] [address] Phone Care Team Providers Care Supervisor Lead Refinery Name Role Phone Anaya Barker Primary Care Provider [phone] Espinoza Noyola MD Unavailable Provider, None Primary Care Provider Unavailabl e Reason for Visit * Reason Comments Medication Refill Encounter Details Date Type Department Care Team (Late st Contact Info) Description 02/05/2020 Refill [facility] #[address] [facility] [place] [address] Espinoza Noyola MD [address] [place] [address] Medication Refill Social History Tobacco [...] on filedocumented in this encounter Care Teams Supervisor Lead Refinery Relationship Specialty Start Date End Date Anaya Barker PA [address] [place] [address] PCP - General Adult Medicine 06/24/16 09/26/21 Provider, [facility] PCP - General 09/27/21 Espinoza Noyola MD [address] [place] [address] Consulting Physician Pulmonary Disease 06/24/16 documented as of this encounter
--- OUTSIDE RECORDS SUMMARY | 2024-08-01 09:46 | XMS_ITS | Encounter Summary ---
Author Organization [facility] Address [address] [place] [address] Phone Care Team Providers Care Field Sales Associate Name Role Phone Espinoza Noyola MD Unavailable Provider, None Primary Care Provider Unavailabl e Reason for Visit * Reason Onset Date Comments Patient Outreach 04/02/2022 LM on Encounter Details Date Type Department Care Team (Late st Contact Info) Description 04/02/2022 Patient Outreach [facility] - Pulmonology & Sleep Medicine [facility] [place] [address] [place] [address] Espinoza Noyola MD [address] [place] [address] Patient Outreach (LM on ) [...] on filedocumented in this encounter Care Teams Field Sales Associate Relationship Specialty Start Date End Date Provider, None [place] PCP - General 09/27/21 Espinoza Noyola MD Consulting Physician Pulmonary Disease 06/24/16 documented as of this encounter
--- OUTSIDE RECORDS SUMMARY | 2024-08-01 09:46 | XMS_ITS | Encounter Summary ---
Author Organization [facility] Address [address] [place] [address] Phone Care Team Providers Care Rhia Name Role Phone Anaya Barker Primary Care Provider [phone] Espinoza Noyola MD Unavailable Provider, None Primary Care Provider Unavailabl e Reason for Visit * Reason Comments Medication Refill Encounter Details Date Type Department Care Team (Late st Contact Info) Description 11/25/2020 Refill [facility] - Pulmonology & Sleep Medicine [facility] [address] [place] [address] Espinoza Noyola MD [address] [place] [address] Medication Refill Social History Tobacco [...] on filedocumented in this encounter Care Teams Rhia Relationship Specialty Start Date End Date Anaya Barker PA [address] [place] [address] PCP - General Adult Medicine 06/24/16 09/26/21 Provider, None [place] PCP - General 09/27/21 Espinoza Noyola MD [address] [place] [address] Consulting Physician Pulmonary Disease 06/24/16 documented as of this encounter
== END 2024-08-01 09:00 | disposition home or self-care (01) ==
PROVIDERS: PCP Nurse Practitioner Adult Health; Visit Provider Nurse Practitioner Adult Health
DX: J18.8 Other pneumonia, unspecified organism (principal); M79.662 Pain in left lower leg; Z12.2 Encounter for screening for malignant neoplasm of respiratory organs; Z87.891 Personal history of nicotine dependence
CPT/HCPCS: 71271; 93971

== ENCOUNTER 2024-08-01 09:03 | Outpatient (CLI) | payer MEDICARE, MEDICAID, SELFPAY ==
--- NOTE | 2024-08-01 09:30 | ECHO_ITS ---
Patient Info Name: Harrison Calvillo Age: 64 years : 1960 Gender: Male Ht: 65 in Wt: 195 lbs BSA: 2.05 m2 HR: 87 bpm BP: 133 / 84 mmHg Technical Quality: Good Exam Date: 08/01/2024 9:54 AM Exam Location: Echo Lab Patient Status: Outpatient Admit Date: 08/01/2024 Staff Ordering Physician: Luisa Ring APRN [employer] Mica: Jak Becerra RDCS Attending Provider: Luisa Ring APRN Referring Physician: Jhonathan RODRIGUEZ; Exam Type: CA echo doppler color flow Study Info Indications I10 - Essential (primary) hypertension Complete two-dimensional, color flow and Doppler transthoracic echocardiogram is performed. Summary 1. Complete two-dimensional, color flow and Doppler transthoracic echocardiogram is performed. 2. Left ventricular chamber dimension is normal. 3. Left ventricular systolic function is normal, estimated at 60-65%. 4. There is mild concentric increased left ventricular wall thickness. 5. The left ventricular diastolic function is grade I diastolic dysfunction. 6. E/e' 5 is not elevated. 7. There is mild aortic valve sclerosis. 8. There is trace tricuspid valve regurgitation. 9. No pulmonary hypertension, estimated pulmonary arterial systolic pressure is 36 mmHg. Left Ventricle E/e' 5 is not elevated. Left ventricular chamber dimension is normal. Left ventricular systolic function is normal, estimated at 60-65%. There is mild concentric increased left ventricular wall thickness. The left ventricular diastolic function is grade I diastolic dysfunction. Right Ventricle Right ventricular systolic function is normal and with normal TAPSE 2.8 cm. Right ventricular chamber dimension is normal. Left Atria Left atrial chamber dimension is normal. Right Atria Right atrial chamber dimension is normal. Aortic Valve The aortic valve is trileaflet. There is mild aortic valve sclerosis. There is no aortic valve stenosis. There is no aortic valve regurgitation. Pulmonic Valve There is no pulmonic regurgitation. Mitral Valve There is no mitral valve stenosis. There is no mitral valve regurgitation. Tricuspid Valve There is trace tricuspid valve regurgitation. No pulmonary hypertension, estimated pulmonary arterial systolic pressure is 36 mmHg. Pericardium/Pleural There is no pericardial effusion. Inferior Vena Cava Normal inferior vena cava with >50% collapse upon inspiration consistent with normal right atrial pressure, 5 mmHg. Aorta The aortic root size at the sinus of Valsalva is normal. Left Ventricular Outflow Tract Name Value Normal LVOT 2D LVOT Diameter 2.2 cm LVOT Doppler LVOT Peak Gradient 5 mmHg LVOT Mean Gradient 3 mmHg LVOT VTI 24 cm LVOT VTI/AV VTI Ratio 0.8 LVOT Stroke Volume 96 ml LVOT CO 6.6 l/min LVOT CI 3.2 l/min/m2 Pulmonic Valve Name Value Normal RVOT Doppler RVOT Peak Gradient 4 mmHg PV Doppler PV Peak Gradient 8 mmHg Mitral Valve Name Value Normal MV Doppler MV Decel [place] 156 cm/s2 MV PHT 102 ms MV Area (PHT) 2.2 cm2 4.0-5.0 MV Diastolic Function MV E Peak Velocity 55 cm/s MV A Peak Velocity 81 cm/s MV E/A 0.7 MV Decel Time 350 ms Tricuspid Valve Name Value Normal TV Regurgitation Doppler TR Peak Velocity 278 cm/s TR Peak Gradient 24 mmHg Estimated PAP/RSVP RA Pressure 5 mmHg <=5 PA Systolic Pressure 36 mmHg <36 RV Systolic Pressure 36 mmHg <36 Aorta Name Value Normal Ascending Aorta Ao Root Diameter (MM) 3.7 cm Ao Root Diam Index (MM) 1.8 cm/m2 Aortic Valve Name Value Normal AV Doppler AV Peak Velocity 182 cm/s AV Peak Gradient 13 mmHg AV Mean Gradient 6 mmHg AV VTI 32 cm AV Area (Cont Eq VTI) 3.0 cm2 >=3.0 AV Area (Cont Eq Santosh) 2.5 cm2 AV Regurgitation 2D LVOT Area 3.9 cm2 Ventricles Name Value Normal LV Dimensions 2D/MM IVS Diastolic Thickness (2D) 1.3 cm 0.6-1.0 IVS Diastole Thickness (MM) 0.9 cm 0.6-1.0 LVID Diastole (2D) 3.4 cm 4.2-5.8 LVID Diastole (MM) 5.6 cm 4.2-5.8 LVIW Diastolic Thickness (2D) 1.3 cm 0.6-1.0 LVIW Diastolic Thickness (MM) 1.0 cm 0.6-1.0 LVID Systole (2D) 2.1 cm 2.5-4.0 LVID Systole (MM) 3.3 cm 2.5-4.0 LVOT Diameter 2.2 cm LV Mass (2D Cubed) 142.01 g 88.00-224.00 LV Mass Index (2D Cubed) 69 g/m2 49-115 Relative Wall Thickness (2D) 0.75 LV Mass (MM Cubed) 206.09 g 88.00-224.00 LV Mass Index (MM Cubed) 101 g/m2 49-115 Relative Wall Thickness (MM) 0.35 LV Fractional Shortening/Ejection Fraction 2D/MM LV Fractional Shortening (2D) 37 % 25-43 LV Fractional Shortening (MM) 42 % 25-43 LV EF (MM Teicholz) 72 % 52-72 LV EF (2D Teicholz) 68 % 52-72 LV Diastolic Volume (4C MOD) 94 ml LV EF (4C MOD) 65 % LV Diastolic Volume (2C MOD) 100 ml LV EF (2C MOD) 70 % LV Diastolic Volume (BP MOD) 97 ml 62-150 LV Diastolic Volume Index (BP MOD) 47 ml/m2 34-74 LV Systolic Volume (BP MOD) 31 ml 21-61 LV Systolic Volume Index (BP MOD) 15 ml/m2 11-31 LV EF (BP MOD) 68 % 52-72 LV Diastolic Length (4C) 9.6 cm LV Systolic Length (4C) 6.9 cm LV Stroke Volume (4C MOD) 61 ml Atria Name Value Normal LA Dimensions LA Dimension (MM) 4.1 cm 3.0-4.1 LA Volume (4C A-L) 40 ml LA Volume (BP A-L) 50 ml RA Dimensions RA Area (4C) 18.7 cm2 <=18.0 Report Signatures
== END 2024-08-01 09:04 | disposition home or self-care (01) ==
PROVIDERS: PCP Nurse Practitioner Adult Health; Visit Provider Nurse Practitioner Adult Health
DX: E78.5 Hyperlipidemia, unspecified (principal); I10 Essential (primary) hypertension; R05.9 Cough, unspecified; J90 Pleural effusion, not elsewhere classified; R60.9 Edema, unspecified
CPT/HCPCS: 93306

== ENCOUNTER 2024-08-15 10:24 | Outpatient (CLI) | payer MEDICARE, MEDICAID, SELFPAY ==
--- NOTE | ~2024-08-15 | XR_ITS ---
Clinical Indication: Pneumonia PA and lateral views of the chest: Comparison: 07/06/2024 Findings: Probable minimal right pleural effusion versus chronic blunting of the right costophrenic a ngle, unchanged. Left lung clear.. Cardiomediastinal silhouette is within normal limits. Bones and s oft tissues are unremarkable. Impression: Stable small right pleural effusion versus chronic blunting of the right costophrenic angle. Reviewed, dictated and finalized at location M. Impression: Stable small right pleural effusion versus chronic blunting of the right costop hrenic angle.
--- OUTSIDE RECORDS SUMMARY | 2024-08-15 11:56 | XMS_ITS | Encounter Summary ---
Author Organization [facility] Address [address] [place] [address] Phone Care Team Providers Care Audiology Assistant Name Role Phone Espinoza Noyola MD Unavailable Provider, None Primary Care Provider Unavailabl e Reason for Visit * Reason Onset Date Comments Patient Outreach 04/02/2022 LM on Encounter Details Date Type Department Care Team (Late st Contact Info) Description 04/02/2022 Patient Outreach [facility] - Pulmonology & Sleep Medicine [facility] [address] [place] [address] Espinoza Noyola MD [address] [place] [address] Patient Outreach (LM on ) Social History Tobacco Use Types Packs/Day Years Used Date Smoking Tobacco: Every Day Cigarettes 1 47.8 Started: 11/07/1976 Smokeless Tobacco: Never Alcohol Use [...] on filedocumented in this encounter Care Teams Audiology Assistant Relationship Specialty Start Date End Date Provider, None [place] PCP - General 09/27/21 Espinoza Noyola MD Consulting Physician Pulmonary Disease 06/24/16 documented as of this encounter
--- OUTSIDE RECORDS SUMMARY | 2024-08-15 11:56 | XMS_ITS | Encounter Summary ---
Author Organization [facility] Address [address] [place] [address] Phone Care Team Providers Care Skiver Counter Name Role Phone Espinoza Noyola MD Unavailable Provider, None Primary Care Provider Unavailabl e Reason for Visit * Reason Comments Medication Refill Encounter Details Date Type Department Care Team (Late st Contact Info) Description 12/01/2021 Refill [facility] - Pul[facility]ology & [facility] Medicine [facility] [address] [place] [address] Espinoza Noyola MD [address] [place] [address] Medication Refill Social History Tobacco [...] on filedocumented in this encounter Care Teams Skiver Counter Relationship Specialty Start Date End Date Provider, None [place] PCP - General 09/27/21 Espinoza Noyola MD Consulting Physician Pulmonary Disease 06/24/16 documented as of this encounter
--- OUTSIDE RECORDS SUMMARY | 2024-08-15 11:56 | XMS_ITS | Encounter Summary ---
Author Organization [facility] Address [address] [place] [address] Phone Care Team Providers Care Router Operator Pin Name Role Phone Anaya Barker Primary Care Provider [phone] Espinoza Noyola MD Unavailable Provider, None Primary Care Provider Unavailabl e Reason for Visit * Reason Comments Medication Refill Encounter Details Date Type Department Care Team (Late st Contact Info) Description 02/05/2020 Refill [facility] #1 [facility] [place] [address] Espinoza Noyola MD [address] [place] [address] Medication Refill Social History Tobacco [...] on filedocumented in this encounter Care Teams Router Operator Pin Relationship Specialty Start Date End Date Anaya Barker PA [address] [place] [address] PCP - General Adult Medicine 06/24/16 09/26/21 Provider, [facility] PCP - General 09/27/21 Espinoza Noyola MD [address] [place] [address] Consulting Physician Pulmonary Disease 06/24/16 documented as of this encounter
--- OUTSIDE RECORDS SUMMARY | 2024-08-15 11:56 | XMS_ITS | Clinical Summary ---
Author Organization [facility] Address [facility] [place] [address] Care Team Providers Care Periodontist Name Role Phone Unavailable Primary Care Provider [...] Prefilled Syringe) 02/06/2022 Influenza Adult (Generic) 03/30/2020,11/2018,03/22/2018,2016,03/03/2016,02/12/2015 Xoomsys (Undesk) COVID-19 AD26 VACCINE 0.5 ML IM SUSP [...] 2) 2009 DTaP, Tdap and Td Vaccines ( 1 - Tdap) 02/13/2015 02/12/2015 RSV Immunization or 60+ Years (1 - Risk 60-74 years 1-dose series) 2019 COVID-19 Vaccine (2 - 2023-2 5 season) 2024 09/29/2020 Pneumococcal Vaccine: 65+ Years (3 of 3 - PPSV23 or PCV20) 02/02/2024 03/05/2022, 10/17/2009 Pneumococcal Vaccine: Pediatrics (0 to 5 Years) and At-Risk Patients (6 to 64 Years) (3 of 3 - PPSV23 or PCV20) 02/02/2024 03/05/2022, 10/17/2009 PHQ-2 (Physician [place]) 05/11/2024 Hepatitis C Completed 02/06/2022 Meningococcal B Vaccine Aged Out No l onger eligible based on patient's age to complete this topic Meningococcal Vaccine Aged Out No marly teresita eligible based on patient's age to complete this topic RSV Immunizations Under 20 Months Aged Out No longer eligible b ased on patient's age to complete this topic [...] VE NON-REACT AUDRA 02/06/2022 6:30 PM CDT [facility] Comment: ANTIBODIES TO HCV NOT DETECTED. DOES NOT EXCLUDE THE POSSIBILITY OF EXPOSURE TO HCV. 02/06/2022 9:54 AM CDT Sarah Lundberg MD LABORATORY Final Result [facility] [address] [place] [address], [place] [phone] [id number] from Last 3 Months or Most Recently Relevant to Health Maintenance Insurance [employer]
--- OUTSIDE RECORDS SUMMARY | 2024-08-15 11:56 | XMS_ITS | Encounter Summary ---
Author Organization [facility] Address [address] [place] [address] Phone Care Team Providers Care Adoption Agent Name Role Phone Anaya Barker Primary Care Provider Espinoza Noyola MD Unavailable Provider, None Primary Care Provider Unavailabl e Reason for Visit * Reason Comments Medication Refill Encounter Details Date Type Department Care Team (Late st Contact Info) Description 05/27/2020 Refill [facility] #[address] [place] [address] Espinoza Noyola MD [address] [place] [address] Medication Refill Social History Tobacco [...] on filedocumented in this encounter Care Teams Adoption Agent Relationship Specialty Start Date End Date Anaya Barker PA [address] [place] [address] PCP - General Adult Medicine 06/24/16 09/26/21 Provider, None [place] PCP - General 09/27/21 Espinoza Noyola MD [address] [place] [address] Consulting Physician Pulmonary Disease 06/24/16 documented as of this encounter
--- OUTSIDE RECORDS SUMMARY | 2024-08-15 11:56 | XMS_ITS | Encounter Summary ---
Author Organization [facility] Address [address] [place] [address] Phone Care Team Providers Care Pipe Line Gauger Name Role Phone Anaya Barker Primary Care Provider [phone] Espinoza Noyola MD Unavailable Provider, None Primary Care Provider Unavailabl e Reason for Visit * Reason Comments Medication Refill Encounter Details Date Type Department Care Team (Late st Contact Info) Description 11/25/2020 Refill [facility] - Pulmonology & Sleep Medicine [facility] [address] [place] [address] Espinoza Noyola MD [address] [place] [address] Medication Refill Social History Tobacco [...] on filedocumented in this encounter Care Teams Pipe Line Gauger Relationship Specialty Start Date End Date Anaya Barker PA [address] [place] [address] PCP - General Adult Medicine 06/24/16 09/26/21 Provider, None [place] PCP - General 09/27/21 Espinoza Noyola MD [address] [place] [address] Consulting Physician Pulmonary Disease 06/24/16 documented as of this encounter
--- OUTSIDE RECORDS SUMMARY | 2024-08-15 11:56 | XMS_ITS | Clinical Summary ---
Author Organization [facility] Address [address] [facility] [place] [address] Phone Care Team Providers Care Supervisor Knitting Name Role Phone Provider, None Primary Care [...] Department Care Team Description 06/08/2024 11:37 AM AGRICULTURAL PRODUCE PACKER - 06/08/2024 1:53 PM [facility] Emergency [facility] Emergency [address] [place] [address] Lawrence Kelley, AURA Facial cellulitis Discharge Disposition: [...] 1 47.8 Started: 11/07/1976 Smokeless Tobacco: Never Tobacco Cessation:Ready [...] Comments Blood Pressure 142/81 06/08/2024 11:41 AM AGRICULTURAL PRODUCE PACKER Pulse 94 06/08/2024 11:41 AM AGRICULTURAL PRODUCE PACKER Temperature 38 C (100.4 F) 06/08/2024 11:41 AM AGRICULTURAL PRODUCE PACKER Respiratory Rate 16 06/08/2024 11:41 AM AGRICULTURAL PRODUCE PACKER Oxygen Saturation 93% 06/08/2024 11:41 AM AGRICULTURAL PRODUCE PACKER Inhaled Oxygen Concentration - - Weight 94.3 kg (208 lb) 06/08/2024 11:41 AM AGRICULTURAL PRODUCE PACKER Height 175.3 cm (5' 9 ) 06/08/2024 11:41 AM AGRICULTURAL PRODUCE PACKER Body Mass Index 30.72 06/08/2024 11:41 AM AGRICULTURAL PRODUCE PACKER Plan of Treatment Health Maintenance Due Date [...] WITH AUTO DIFFERENTIAL STAT 06/08/2024 12:54 PM AGRICULTURAL PRODUCE PACKER CMP (COMPREHENSIVE METABOLIC PANEL) STAT 06/08/2024 12:54 PM AGRICULTURAL PRODUCE PACKER COMPLETE BLOOD COUNT (CBC) WITH DIFF STAT 06/08/2024 12:54 PM A[address]ULTURAL PRODUCE PACKER CT CHEST W CONTRAST Routine 09/17/2016 1 :13 PM CDT Hyperinflation of lungs from Last 3 Months or Most Recently Relevant to Health Maintenance Results * (ABNORMAL) CBC with Auto Differential (06/08/2024 12:54 PM AGRICULTURAL PRODUCE PACKER) WBC 10.88 4.00 - 12.00 10(3)/mcL 06/08/2024 1:16 PM AGRICULTURAL PRODUCE PACKER [facility] RBC 5.32 4.40 - 5.80 10(6)/mcL 06/08/2024 1:16 PM AGRICULTURAL PRODUCE PACKER [facility] HEMOGLOBIN (HGB) 15.1 13.0 - 16.5 g/dL 06/08/2024 1:16 PM AGRICULTURAL PRODUCE PACKER [facility] HEMATOCRIT (HCT) 44.1 38.0 - 50.0 % 06/08/2024 1:16 PM AGRICULTURAL PRODUCE PACKER [facility] MCV 82.9 82.0 - 96.0 fL 06/08/2024 1:16 PM AGRICULTURAL PRODUCE PACKER [facility] MCH 28.4 26.0 - 32.0 pg 06/08/2024 1:16 PM AGRICULTURAL PRODUCE PACKER [facility] MCHC 34.2 31.0 - 36.0 g/dL 06/08/2024 1:16 PM AGRICULTURAL PRODUCE PACKER [facility] PLATELET COUNT 193 140 - 440 10(3)/mcL 06/08/2024 1:16 PM [facility] RDW 12.6 11.8 - 15.5 % 06/08/2024 1:16 PM [facility] MPV 10.8 8.0 - 12.6 fL 06/08/2024 1:16 PM [facility] NEUTROPHILS 80.9(H) 40.0 - 68.0 % 06/08/2024 1:16 PM [facility] LYMPHOCYTES 6.7(L) 19.0 - 49.0 % 06/08/2024 1:16 PM [facility] MONOCYTES 11.8 3.0 - 13.0 % 06/08/2024 1:16 PM [facility] EOSINOPHILS 0.4 0.0 - 8.0 % 06/08/2024 1:16 PM [facility] BASOPHILS 0.2 0.0 - 1.0 % 06/08/2024 1:16 PM [facility] ABSOLUTE NEUTROPHILS 8.81(H) 1.40 - 5.30 10(3)/[facility] 06/08/2024 1:16 PM [facility] ABSOLUTE LYMPHOCYTES 0.73(L) 0.90 - 3.30 10(3)/[facility] 06/08/2024 1:16 PM [facility] ABSOLUTE MONOCYTES 1.28(H) 0.10 - 0.90 10(3)/[facility] 06/08/2024 1:16 PM [facility] ABSOLUTE EOSINOPHIL 0.04 0.00 - 0.50 10(3)/[facility] 06/08/2024 1:16 PM [facility] ABSOLUTE BASOPHILS 0.02 0.00 - 0.10 10(3)/[facility] 06/08/2024 1:16 PM [facility] NRBC PER 100 WBC 0 06/08/19 1:16 PM [facility] Blood Venipuncture / Unknown 06/08/2024 12:54 PM [facility] 06/08/2024 1:12 PM [facility] us Lawrence Medina Allie PAC HEMATOLOGY ORDERABLE S Final Result [facility] #[address] [place] [address] * (ABNORMAL) CMP (06/08/2024 12:54 PM AGRICULTURAL PRODUCE PACKER) SODIUM 136 136 - 145 mmol/L 06/08/2024 1:31 PM AGRICULTURAL PRODUCE PACKER [facility] POTASSIUM 3.8 3.5 - 5.1 mmol/L 06/08/2024 1:31 PM [facility] CHLORIDE 103 98 - 107 mmol/L 06/08/2024 1:31 PM [facility] CO2, VENOUS 25 22 - 30 mmol/L 06/08/2024 1:31 PM [facility] ANION GAP 11.8 <18.0 mmol/L 06/08/2024 1:31 PM [facility] GLUCOSE 163(H) 70 - 99 mg/dL 06/08/2024 1:31 PM [facility] BUN 28(H) 8 - 26 mg/dL 06/08/2024 1:31 PM [facility] CREATININE, BLOOD 0.96 0.70 - 1.30 mg/dL 06/08/2024 1:31 PM [facility] BUN/CREATININE RATIO 29(H) 12 - 20 ratio 06/08/2024 1:31 PM [facility] TOTAL PROTEIN 7.4 6.0 - 8.0 g/dL 06/08/2024 1:31 PM [facility] ALBUMIN 3.3(L) 3.5 - 5.0 g/dL 06/08/2024 1:31 PM [facility] A/G RATIO 0.8(L) 1.0 - 2.2 06/08/2024 1:31 PM [facility] CALCIUM 9.1 8.7 - 10.5 mg/dL 06/08/2024 1:31 PM [facility] T BILI 0.5 0.2 - 1.2 mg/dL 06/08/2024 1:31 PM AGRICULTURAL PRODUCE PACKER [facility] SGOT (AST) 37 6 - 42 U/L 06/08/2024 1:31 PM AGRICULTURAL PRODUCE PACKER [facility] SGPT (ALT) 42 6 - 55 U/L 06/08/2024 1:31 PM AGRICULTURAL PRODUCE PACKER [facility] ALKALINE PHOSPHATASE 90 40 - 150 U/L 06/08/2024 1:31 PM AGRICULTURAL PRODUCE PACKER [facility] GFR, ESTIMATED >60 >=60 06/08/2024 1:31 PM AGRICULTURAL PRODUCE PACKER [facility] Comment: Creatinine Clearance is the preferred criteria for selecting drug dose adjustments in renally impaired patients. The GFR is provided as additional pertinent clinical information. GFR is reported in mL/min/1.73 sq m. Calculation based on the Chronic Kidney Disease Epidemiology Collaboration (CKD- EPI) equation refit without adjustment for race. GFR, EST. >60 >=60 025 1:31 PM AGRICULTURAL PRODUCE PACKER [facility] GFR, EST. NONAFRICAN >60 >=60 06/08/2024 1:31 PM AGRICULTURAL PRODUCE PACKER [facility] Blood Venipuncture / Unknown 06/08/2024 12:54 PM AGRICULTURAL PRODUCE PACKER 06/08/2024 1:12 PM AGRICULTURAL PRODUCE PACKER Lawrence Kelley PAC CHEMISTRY ORDERABLES Final Result Performing Organization Address City/State/[facility] Co de Phone Number [facility] #[address] [place] [address] * CT CHEST W CONTRAST (09/17/2016 1:13 [...] MEDICAID [place] MEDICARE C [employer] Care Teams Supervisor Knitting Relationship Specialty Start Date End Date Provider, None [place] PCP - General 09/27/21
== END 2024-08-15 10:25 | disposition home or self-care (01) ==
LOC: ANHBWCIMG 10:27
PROVIDERS: PCP Nurse Practitioner Adult Health; Visit Provider Nurse Practitioner Adult Health
DX: R91.8 Other nonspecific abnormal finding of lung field (principal); Z87.01 Personal history of pneumonia (recurrent)
CPT/HCPCS: 71046

== ENCOUNTER 2024-11-07 08:50 | Outpatient (CLI) | payer MEDICARE, MEDICAID, SELFPAY ==
--- NOTE | ~2024-11-07 | CT_ITS ---
CT Scan of the Chest without Contrast: Clinical Indication: Lung cancer screening, nicotine dependence Technique: Contiguous sections were acquired throughout the chest without intravenous contrast. Dose reduction technique was used on this scan by utilizing automated exposure control and iterative recon struction technique. The dose-length product (DLP) was 118.99 mGy-cm. COMPARISON: 08/01/2024 Findings: There is no evidence of any significant mediastinal, hilar or axillary lymphadenopathy. The mediastin al soft tissues appear normal. There is no evidence of pleural or pericardial effusion. Stable nodules posteriorly the right lung base, measuring up to 14 mm. Mild emphysema present. Images through the upper abdomen reveal no abnormalities. Impression: Lung RADS 3: Probably benign. Six-month follow-up CT recommended. Reviewed, dictated and finalized at [facility]. Impression: Lung RADS 3: Probably benign. Six-month follow-up CT recommended.
== END 2024-11-07 08:51 | disposition home or self-care (01) ==
LOC: ANHIMG 08:51
PROVIDERS: PCP Nurse Practitioner Adult Health; Visit Provider Nurse Practitioner Adult Health
DX: Z12.2 Encounter for screening for malignant neoplasm of respiratory organs (principal); Z87.891 Personal history of nicotine dependence
CPT/HCPCS: 71271

== ENCOUNTER 2024-11-21 10:22 | Outpatient (CLI) | payer MEDICARE, MEDICAID, SELFPAY ==
--- OUTSIDE RECORDS SUMMARY | 2024-11-21 10:27 | XMS_ITS | Encounter Summary ---
Author Organization [facility] Address [address] [place] [address] Phone Care Team Providers Care Registered Private Duty Nurse Name Role Phone Anaya Barker Primary Care Provider [phone] Espinoza Noyola MD Unavailable Provider, None Primary Care Provider Unavailabl e Reason for Visit * Reason Comments Medication Refill Encounter Details Date Type Department Care Team (Late st Contact Info) Description 05/27/2020 Refill [facility] #1 [facility] [place] [address] Espinoza Noyola MD [address] [place] [address] Medication Refill Social History Tobacco Use Types Packs/Day Years Used Date Smoking Tobacco: Every Day Cigarettes 1 48 Started: 11/07/1976 Smokeless Tobacco: Never Alcohol Use [...] on filedocumented in this encounter Care Teams Registered Private Duty Nurse Relationship Specialty Start Date End Date Anaya Barker PA [address] [place] [address] PCP - General Adult Medicine 06/24/16 09/26/21 Provider, [facility] PCP - General 09/27/21 Espinoza Noyola MD [address] [place] [address] Consulting Physician Pulmonary Disease 06/24/16 documented as of this encounter
--- OUTSIDE RECORDS SUMMARY | 2024-11-21 10:27 | XMS_ITS | Encounter Summary ---
Author Organization [facility] Address [address] [place] [address] Phone Care Team Providers Care Biomedical Manager Name Role Phone Espinoza Noyola MD Unavailable Provider, None Primary Care Provider Unavailabl e Reason for Visit * Reason Onset Date Comments Patient Outreach 04/02/2022 LM on Encounter Details Date Type Department Care Team (Late st Contact Info) Description 04/02/2022 Patient Outreach [facility] - Pulmonology & Sleep Medicine [facility] #[address] [place] [address] Espinoza Noyola MD [address] [place] [address] Patient Outreach (LM on ) [...] on filedocumented in this encounter Care Teams Biomedical Manager Relationship Specialty Start Date End Date Provider, None [place] PCP - General 09/27/21 Espinoza Noyola MD Consulting Physician Pulmonary Disease 06/24/16 documented as of this encounter
--- OUTSIDE RECORDS SUMMARY | 2024-11-21 10:27 | XMS_ITS | Encounter Summary ---
Author Organization [facility] Address [address] [place] [address] Phone Care Team Providers Care Power Press Supervisor Name Role Phone Anaya Barker Primary Care Provider [phone] Espinoza Noyola MD Unavailable Provider, None Primary Care Provider Unavailabl e Reason for Visit * Reason Comments Medication Refill Encounter Details Date Type Department Care Team (Late st Contact Info) Description 11/25/2020 Refill [facility] - Pulmonology & Sleep Medicine [facility] [address] [place] [address] Espinoza Noyola MD [address] [place] [address] Medication Refill Social History Tobacco [...] on filedocumented in this encounter Care Teams Power Press Supervisor Relationship Specialty Start Date End Date Anaya Barker PA [address] [place] [address] PCP - General Adult Medicine 06/24/16 09/26/21 Provider, None [place] PCP - General 09/27/21 Espinoza Noyola MD [address] [place] [address] Consulting Physician Pulmonary Disease 06/24/16 documented as of this encounter
--- OUTSIDE RECORDS SUMMARY | 2024-11-21 10:27 | XMS_ITS | Clinical Summary ---
Author Organization [facility] Address [address] [facility] [place] [address] Phone Care Team Providers Care Measuring Machine Operator Name Role Phone Provider, None [...] 1 48 Started: 11/07/1976 Smokeless Tobacco: Never Tobacco Cessation:Ready [...] Comments Blood Pressure 142/81 06/08/2024 11:41 AM DATA PROGRAMMER Pulse 94 06/08/2024 11:41 AM DATA PROGRAMMER Temperature 38 C (100.4 F) 06/08/2024 11:41 AM DATA PROGRAMMER Respiratory Rate 16 06/08/2024 11:41 AM DATA PROGRAMMER Oxygen Saturation 93% 06/08/2024 11:41 AM DATA PROGRAMMER Inhaled Oxygen Concentration - - Weight 94.3 kg (208 lb) 06/08/2024 11:41 AM DATA PROGRAMMER Height 175.3 cm (5' 9) 06/08/2024 11:41 AM DATA PROGRAMMER Body Mass Index 30.72 06/08/2024 11:41 AM DATA PROGRAMMER Plan of Treatment Health Maintenance Due Date Last Done Comments TdaP Immunization 1959 Cologuard 02/02/2004 Colonoscopy 02/02/2004 Colorectal Cancer Screening 02/02/2004 Immunochemical Fecal Occult Blood 02/02/2004 Zoster Immunization (1 of 2) 2009 PSA Discussion 2014 Respiratory Syncytial Virus (RSV) Immunization (Adult) (1 - Risk 60-74 years 1-dose series) 2019 SARS-COV-2 Immunization (2 - season) 2024 09/29/2020 Influenza Immunization (#1) 2025 092 01/2022, 03/30/2020, 02/14/2019, Additional history exists Pneumococcal Immunization (50+ years) (3 of 3 - PCV20 or PCV21) 03/05/2027 03/05/2022, 10/17/2009 DTaP/Tdap/Td Immunization Discontinued 02/12/2015 Lung Cancer Screening Discontinued 09/17/2016 Hepatitis C Virus (HCV) Screening Completed 02/06/2022 Pneumococcal Immunization Combined Discontinued 03/05/2022, 10/17/2009 Hepatitis B Immunization Aged Out No longer eligible based on patient's age to complete this topic Human Papillomavirus (HPV) Immunization Aged Out No longer eligible based on patient's age to complete this topic Meningococcal Immunization (ACWY) Aged Out No longer eligible based on patient's age to complete this topic Rotavirus Immunization Aged Out No lo nger eligible based on patient's age to complete this topic Procedures Procedure Name Priority Date/Time Associated Diagnosis Comments CT CHEST W CONTRAST Routine 09/17/2016 1 [...] technique for this examination. Espinoza Noyola MD IM CT ORDERABLES Final Result from Last 3 Months or Most Recently Relevant to Health [place] [address] MEDICAID [place] MEDICARE C [employer] Care Teams Measuring Machine Operator Relationship Specialty Start Date End Date Provider, None [place] PCP - General 09/27/21
--- OUTSIDE RECORDS SUMMARY | 2024-11-21 10:27 | XMS_ITS | Encounter Summary ---
Author Organization [facility] Address [address] [place] [address] Phone Care Team Providers Care Packer And Carry Out Name Role Phone Espinoza Noyola MD Unavailable Provider, None Primary Care Provider Unavailabl e Reason for Visit * Reason Comments Medication Refill Encounter Details Date Type Department Care Team (Late st Contact Info) Description 12/01/2021 Refill [facility] - [facility] & [facility] Medicine [facility] #[address] [place] [address] Espinoza Noyola MD [address] [place] [address] Medication Refill Social History Tobacco [...] on filedocumented in this encounter Care Teams Packer And Carry Out Relationship Specialty Start Date End Date Provider, None [place] PCP - General 09/27/21 Espinoza Noyola MD Consulting Physician Pulmonary Disease 06/24/16 documented as of this encounter
--- OUTSIDE RECORDS SUMMARY | 2024-11-21 10:27 | XMS_ITS | Encounter Summary ---
Author Organization [facility] Address [address] [place] [address] Phone Care Team Providers Care Lye Machine Operator Name Role Phone Anaya Barker Primary Care Provider [phone] Espinoza Noyola MD Unavailable Provider, None Primary Care Provider Unavailabl e Reason for Visit * Reason Comments Medication Refill Encounter Details Date Type Department Care Team (Late st Contact Info) Description 02/05/2020 Refill [facility] #[address] [facility] [address] Espinoza Noyola MD [address] [place] [address] Medication Refill Social History Tobacco [...] on filedocumented in this encounter Care Teams Lye Machine Operator Relationship Specialty Start Date End Date Anaya Barker PA [address] [place] [address] PCP - General Adult Medicine 06/24/16 09/26/21 Provider, None [place] PCP - General 09/27/21 Espinoza Noyola MD [address] [place] [address] Consulting Physician Pulmonary Disease 06/24/16 documented as of this encounter
--- OUTSIDE RECORDS SUMMARY | 2024-11-21 10:27 | XMS_ITS | Clinical Summary ---
Author Organization [facility] Address [facility] [place] [address] Care Team Providers Care Drupal Architect Name Role Phone Unavailable Primary Care Provider [...] tis 08/13/2016 Tobacco use disorder 08/13/2016 Immunizations Immunization Administration Dates Next Due Fluzone 6 Months+ Quad (0.5 mL Prefilled Syringe) 02/06/2022 Influenza Adult (Generic) 03/30/2020,11/2018,03/22/2018,2016,03/03/2016,02/12/2015 Petrabytes (Socialthing) COVID-19 AD26 VACCINE 0.5 ML IM SUSP [...] A M CDT Height 175.3 cm (5' 9) 03/05/2022 9:47 AM CDT Body Mass Index [...] (2 - 2023-2 5 season) 2024 09/29/2020 PHQ-2 (Physician Joffre) 05/11/2024 Pneumococcal Vaccine: 50+ Years (3 of 3 - PCV20 or PCV21) 03/05/2027 03/05/2022, 10/17/2009 Hepatitis C Completed 02/06/2022 Meningococcal B Vaccine [...] VE NON-REACT AUDRA 02/06/2022 6:30 PM CDT [facility] Comment: ANTIBODIES TO HCV NOT DETECTED. DOES NOT EXCLUDE THE POSSIBILITY OF EXPOSURE TO HCV. 02/06/2022 9:54 AM CDT Sarah Lundberg MD LABORATORY Final Result [facility] [address] [place] [address], [id number] from Last 3 Months or Most Recently Relevant to Health Maintenance Insurance [employer]
[2024-11-21 18:41] LABS: Alanine Aminotransferase 23 U/L (6-50); Albumin Level 4.0 g/dL (3.5-5.1); Alkaline Phosphatase 62 U/L (38-126); Anion Gap 6 mmol/L (4-12); Aspartate Amino Transferase 49 U/L (17-59); Bilirubin,Total 0.5 mg/dL (0.2-1.3); Blood Urea Nitrogen 17 mg/dL (9-20); Calcium 9.5 mg/dL (8.4-10.2); Carbon Dioxide 29 mmol/L (22-30); Chloride 104 mmol/L (98-107); Cholesterol 155 mg/dL (0-200); Estimated Glomerular Filt Rate > 60; Glucose 148 mg/dL (65-110); HDL Direct 51 mg/dL; Potassium 4.2 mmol/L (3.4-5.0); Sodium 139 mmol/L (137-145); Total Protein 7.0 g/dL (6.3-8.2); Triglycerides 75 mg/dL (<150)
[2024-11-21 18:52] LABS: Hemoglobin A1C 6.0 % (<5.7)
[2024-11-21 19:35] LABS: Vitamin B12 367.0 pg/mL (239-931)
== END 2024-11-21 10:23 | disposition home or self-care (01) ==
PROVIDERS: PCP Nurse Practitioner Adult Health; Visit Provider Nurse Practitioner Adult Health
DX: K21.9 Gastro-esophageal reflux disease without esophagitis (principal); I10 Essential (primary) hypertension; R73.03 Prediabetes
CPT/HCPCS: 36415; 80053; 80061; 82607; 83036